=== PATIENT | male | born 1940 | race Caucasian/White ===

== ENCOUNTER 2020-03-27 16:09 | Inpatient (IN) | payer OTHER ==
[~2020-03-27] VITALS: Ht 165.1 cm; Wt 56.2 kg
[2020-03-27] MEDS ORDERED: IV NORMAL SALINE 1000ML BAG 1,000 ML IV ONE ×2 (16:30→17:45)
[2020-03-27] MEDS ORDERED: ACETAMINOPHEN 500 MG TABLET PO ONE (16:30)
[2020-03-27] MEDS ORDERED: ACETAMINOPHEN 650 MG SUPP.RECT. ONE (16:44)
[2020-03-27] MEDS ORDERED: DILTIAZEM HCL 125 MG in IV NORMAL SALINE 100ML 100 ML IV ONE (16:45)
[2020-03-27] MEDS ORDERED: dilTIAZem IV PUSH 25 MG/5 ML VIAL IVP ONE ×2 (16:45→17:30)
[2020-03-27 16:52] LABS: BASO % 0 % (0-3); EOS % 0 % (0-3); HEMOGLOBIN 16.7 g/dL (13.0-17.5); LYMPH # 0.6 x10^3/uL (1.0-4.8); LYMPH % 5 % (24-48); MEAN CORPUSCULAR HEMOGLOBIN 29 pg (25-35); MEAN CORPUSCULAR HGB CONC 33 g/dL (31-37); MEAN CORPUSCULAR VOLUME 88 fL (79-100); MONO # 0.4 x10^3/uL (0.0-1.1); MONO % 3 % (0-9); NEUT # 12.7 x10^3/uL (1.8-7.7); NEUT % 92 % (31-73); PLATELET COUNT 230 x10^3/uL (140-400); RED BLOOD COUNT 5.79 x10^6/uL (4.30-5.70); RED CELL DISTRIBUTION WIDTH 14.1 % (11.5-14.5); WHITE BLOOD COUNT 13.8 x10^3/uL (4.0-11.0)
[2020-03-27 17:01] LABS: CALCIUM 8.5 mg/dL (8.5-10.1); CREATININE 1.9 mg/dL (0.7-1.3); GFR 34.3; POTASSIUM 3.9 mmol/L (3.5-5.1)
[2020-03-27 17:08] LABS: ALBUMIN 2.4 g/dL (3.4-5.0); ALBUMIN/GLOBULIN RATIO 0.6 (1.0-1.7); TOTAL BILIRUBIN 0.8 mg/dL (0.2-1.0); TOTAL PROTEIN 6.7 g/dL (6.4-8.2)
[2020-03-27 17:13] LABS: BILIRUBIN,URINE SMALL (NEG); CLARITY,URINE HAZY; COLOR,URINE YELLOW
[2020-03-27 17:14] LABS: AMORPHOUS SEDIMENT,UR PRESENT /HPF; BACTERIA,URINE 0 /HPF (0-FEW); GRANULAR CASTS,URINE FEW /HPF; HYALINE CASTS, URINE MODERATE /HPF; NITRITE,URINE NEGATIVE (NEG); PH,URINE 5.5 (<5.0-8.0); PROTEIN,URINE >=300 mg/dL (NEG-TRACE)
[2020-03-27 17:19] LABS: % ATYL 1 % (0-0); % BANDS 12 % (0-9); % LYMPHS 3 % (24-48); % MONOS 1 % (0-10); % SEGS 83 % (35-66); PLT ESTIMATE ADEQUATE (ADEQUATE); TOXIC GRANULATION SLIGHT; TOXIC VACUOLATION SLIGHT
[2020-03-27] MEDS ORDERED: ACETAMINOPHEN 650 MG SUPP.RECT. PR ONE (17:30)
[2020-03-27] MEDS: IV NORMAL SALINE 1000ML BAG 1,000 ML IV SCH (17:34)
[2020-03-27] MEDS ORDERED: ONDANSETRON PF 4 MG/2 ML VIAL. IV PRN ×2 (17:45→18:15)
--- NOTE | 2020-03-27 17:50 | RAD ---
EXAM: CHEST ONE VIEW. HISTORY: Cough. COMPARISON: None. FINDINGS: A frontal view of the chest is obtained. There are mild airspace infiltrates in the left midlung and left base. Lesser opacities are suspected in the right perihilar region. The inspiration is small. There is no pneumothorax or pleural effusion. The heart is not enlarged. IMPRESSION: 1. Patchy mild airspace infiltrates. Correlate for atypical pneumonia. Electronically signed by: Malorie Michel MD (03/27/2020 5:47 PM) [facility]
--- NOTE | 2020-03-27 17:54 | PHYS DOC ---
Past Medical History Past Medical History: No Pertinent History Smoking Status: Never Smoker Alcohol Use: None General Adult EDM: Chief Complaint: ALTERED MENTAL STATUS HPI: HPI: Patient is an 79-year-old male from [facility] where the vast majority of their inmates and staff are COVID-19 positive. This man has really no underlying medical conditions with the exception of dementia. Over the last 2 days the the staff state that his mental status has deteriorated and he is developed fever and today it appeared as if he had some shortness of breath. EMS was called to bring him to the emergency department for further evaluation. EMS reports to us on their arrival his heart rate was elevated and he was febrile. [] Review of Systems: Review of Systems: Review of systems is unobtainable secondary to the critical nature of the patient's illness along with dementia Heart Score: Risk Factors: Risk Factors: DM, Current or recent (<one month) smoker, HTN, HLP, family history of CAD, obesity. Risk Scores: Score 0 - 3: 2.5% MACE over next 6 weeks - Discharge Home Score 4 - 6: 20.3% MACE over next 6 weeks - Admit for Clinical Observation Score 7 - 10: 72.7% MACE over next 6 weeks - Early Invasive Strategies Current Medications: Current Medications Medications (Trade) Dose Ordered Sig/Asa Start Time Stop Time Status Last Admin Dose Admin Acetaminophen (Tylenol Supp) 650 mg STK-MED ONCE 03/27/20 16:44 03/27/20 16:45 DC Acetaminophen (Tylenol) 1,000 mg 1X ONCE 03/27/20 16:30 03/27/20 16:55 DC Diltiazem HCl (Cardizem Iv Push) 10 mg 1X ONCE 03/27/20 16:45 03/27/20 16:55 DC 03/27/20 16:49 10 MG Diltiazem HCl 125 mg/Sodium Chloride 125 ml @ 5 mls/hr 1X ONCE 03/27/20 16:45 03/28/20 17:44 03/27/20 16:45 5 MLS/HR Sodium Chloride 1,000 ml @ 1,000 mls/hr 1X ONCE 03/27/20 16:30 03/27/20 17:29 DC 03/27/20 16:48 1,000 MLS/HR Allergies: Allergies: Allergies Coded Allergies Type Severity Reaction Last Updated Verified No Known Drug Allergies 03/27/20 No Physical Exam: PE: Constitutional: Well developed, well nourished, n appears acutely ill [] HENT: Normocephalic, atraumatic, bilateral external ears normal, oropharynx moist, no oral exudates, nose normal. [] Eyes: PERRLA, EOMI, conjunctiva normal, no discharge. [] Neck: Normal range of motion, no tenderness, supple, no stridor. [] Cardiovascular: Tachycardic irregularly irregular no murmur r [] Lungs & Thorax: Bilateral breath sounds clear to auscultation [] Abdomen: Bowel sounds normal, soft, no tenderness, no masses, no pulsatile masses. [] Skin: Warm, dry, no erythema, no rash. [] Back: No tenderness, no CVA tenderness. [] Extremities: No tenderness, no cyanosis, no clubbing, ROM intact, no edema. [] Neurologic: Awake but confused, normal motor function, normal sensory function, no focal deficits noted. [] Psychologic: Unable to assess. [] Current Patient Data: Labs: Laboratory Tests Test 03/27/20 16:37 03/27/20 17:02 White Blood Count 13.8 x10^3/uL (4.0-11.0) H Red Blood Count 5.79 x10^6/uL (4.30-5.70) H Hemoglobin 16.7 g/dL (13.0-17.5) Hematocrit 51.0 % (39.0-53.0) Mean Corpuscular Volume 88 fL (79-100) Mean Corpuscular Hemoglobin 29 pg (25-35) Mean Corpuscular Hemoglobin Concent 33 g/dL (31-37) Red Cell Distribution Width 14.1 % (11.5-14.5) Platelet Count 230 x10^3/uL (140-400) Neutrophils (%) (Auto) 92 % (31-73) H Lymphocytes (%) (Auto) 5 % (24-48) L Monocytes (%) (Auto) 3 % (0-9) Eosinophils (%) (Auto) 0 % (0-3) Basophils (%) (Auto) 0 % (0-3) Neutrophils # (Auto) 12.7 x10^3/uL (1.8-7.7) H Lymphocytes # (Auto) 0.6 x10^3/uL (1.0-4.8) L Monocytes # (Auto) 0.4 x10^3/uL (0.0-1.1) Eosinophils # (Auto) 0.0 x10^3/uL (0.0-0.7) Basophils # (Auto) 0.0 x10^3/uL (0.0-0.2) Segmented Neutrophils % 83 % (35-66) H Band Neutrophils % 12 % (0-9) H Lymphocytes % 3 % (24-48) L Atypical Lymphocytes % (Manual) 1 % (0-0) H Monocytes % 1 % (0-10) Toxic Granulation Slight Toxic Vacuolation Slight Platelet Estimate Adequate (ADEQUATE) Sodium Level 151 mmol/L (136-145) H Potassium Level 3.9 mmol/L (3.5-5.1) Chloride Level 110 mmol/L (98-107) H Carbon Dioxide Level 29 mmol/L (21-32) Anion Gap 12 (6-14) Blood Urea Nitrogen 47 mg/dL (8-26) H Creatinine 1.9 mg/dL (0.7-1.3) H Estimated GFR (Cockcroft-Gault) 34.3 BUN/Creatinine Ratio 25 (6-20) H Glucose Level 120 mg/dL (70-99) H Lactic Acid Level 3.2 mmol/L (0.4-2.0) H Calcium Level 8.5 mg/dL (8.5-10.1) Total Bilirubin 0.8 mg/dL (0.2-1.0) Aspartate Amino Transferase (AST) 60 U/L (15-37) H Alanine Aminotransferase (ALT) 21 U/L (16-63) Alkaline Phosphatase 38 U/L (46-116) L Troponin I Quantitative 1.430 ng/mL (0.000-0.055) Total Protein 6.7 g/dL (6.4-8.2) Albumin 2.4 g/dL (3.4-5.0) L Albumin/Globulin Ratio 0.6 (1.0-1.7) L Urine Collection Type U cath Urine Color Yellow Urine Clarity Hazy Urine pH 5.5 (<5.0-8.0) Urine Specific [place] >=1.030 (1.000-1.030) Urine Protein >=300 mg/dL (NEG-TRACE) Urine Glucose (UA) Negative mg/dL (NEG) Urine Ketones (Stick) 15 mg/dL (NEG) Urine Blood Moderate (NEG) Urine Nitrite Negative (NEG) Urine Bilirubin Small (NEG) Urine Urobilinogen Dipstick 1.0 mg/dL (0.2 mg/dL) Urine Leukocyte Esterase Negative (NEG) Urine RBC 3-5 /HPF (0-2) Urine WBC 1-4 /HPF (0-4) Urine Squamous Epithelial Cells None /LPF Urine Amorphous Sediment Present /HPF Urine Bacteria 0 /HPF (0-FEW) Urine Hyaline Casts Moderate /HPF Urine Granular Casts Few /HPF Urine Mucus Marked /LPF Laboratory Tests 03/27/20 16:37 Laboratory Tests 03/27/20 16:37 Vital Signs: Vital Signs Date Time Temp Pulse Resp B/P (MAP) Pulse Ox O2 Delivery O2 Flow Rate FiO2 03/27/20 17:45 151 105/70 03/27/20 16:37 101.6 26 87 Nasal Cannula 3.0 101.6 EKG: EKG: EKG: Rapid atrial fibrillation rate of 180 with [address] obvious ischemic [address]-T changes [] Radiology/Procedures: Radiology/Procedures: [] Impression: REASON: cough PROCEDURE: CHEST AP ONLY EXAM: CHEST ONE VIEW. HISTORY: Cough. COMPARISON: None. FINDINGS: A frontal view of the chest is obtained. There are mild airspace infiltrates in the left midlung and left base. Lesser opacities are suspected in the right perihilar region. The inspiration is small. There is no pneumothorax or pleural effusion. The heart is not enlarged. IMPRESSION: 1. Patchy mild airspace infiltrates. Correlate for atypical pneumonia. Course & Med Decision Making: Course & Med Decision Making Pertinent Labs and Imaging studies reviewed. (See chart for details) [CRITICAL CARE: Time spent was 35 minutes. This includes medical management, evaluation, reevaluation, discussion with consultants and family. Critical Care does NOT include time spent on separately billed procedures. ED course: Evaluation reveals a very sick 79-year-old male who presents to the emergency department with some respiratory distress and tachycardia. It looks as if he is in rapid atrial fibrillation. He was given IV fluids and a Cardizem bolus and subsequently started on Cardizem drip. This did not really affect his rate much so he was given another bolus and continued on the drip. I suspect this patient has rapid atrial fibrillation and COVID-19. I think his elevated troponin is rate related.] Dragon Disclaimer: Dragrachel Disclaimer: This electronic medical record was generated, in whole or in part, using a voice recognition dictation system. Departure Departure Impression: Primary Impression: Rapid atrial fibrillation Additional Impression: COVID-19 virus infection Disposition: ADMITTED INPATIENT Admitting Physician: SENA Condition: CRITICAL Referrals: NON,STAFF (PCP) MARCO LANDA DO March 27, 2020 17:54
[2020-03-27] MEDS ORDERED: 0.9 % SODIUM CHLORIDE 10 ML DISP.SYRIN. IV PRN ×2 (18:15→18:30)
[2020-03-27] MEDS ORDERED: DOCUSATE SODIUM 100 MG CAPSULE. PO PRN (18:15)
[2020-03-27] MEDS ORDERED: ACETAMINOPHEN 650 MG SUPP.RECT. PR PRN (18:15)
--- NOTE | 2020-03-27 18:25 | PDOC1 ---
History and Physical Date of Admission Date of Admission DATE: 03/27/20 TIME: 18:25 Identification/Chief Complaint Chief Complaint SEEN IN ER with fever, cough x 2 days, altered mentation, inmate at [facility] for 46 yrs, known hx of moderate dementia , , cxr concerning for covid- 19 pneumonia, found to be in AFIB RVR GIVEN CARDIZEM, then became hypotensive, ADMITTED TO ICU BED 107 ON PRESSORS troponin i elevated as well Past Medical History Past Medical History Past Medical History Past Medical History: No Pertinent History Smoking Status: Never Smoker Alcohol Use: None FHX HTN Family History Family History: Other (UNKNOWN) Social History Smoke: No ALCOHOL: none Drugs: None Current Problem List Problem List Problems Medical Problems: (1) COVID-19 virus infection Status: Acute (2) Rapid atrial fibrillation Status: Acute Current Medications Current Medications Current Medications Sodium Chloride 1,000 ml @ 1,000 mls/hr 1X ONCE IV Last administered on 03/27/20at 16:48; Start 03/27/20 at 16:30; Stop 03/27/20 at 17:29; Status DC Acetaminophen (Tylenol) 1,000 mg 1X ONCE PO ; Start 03/27/20 at 16:30; Stop 03/27/20 at 16:55; Status DC Diltiazem HCl 125 mg/Sodium Chloride 125 ml @ 5 mls/hr 1X ONCE IV Last administered on 03/27/20at 16:45; Start 03/27/20 at 16:45; Stop 03/28/20 at 17:44 Diltiazem HCl (Cardizem Iv Push) 10 mg 1X ONCE IVP Last administered on 03/27/20at 16:49; Start 03/27/20 at 16:45; Stop 03/27/20 at 16:55; Status DC Acetaminophen (Tylenol Supp) 650 mg STK-MED ONCE .ROUTE ; Start 03/27/20 at 16:44; Stop 03/27/20 at 16:45; Status DC Diltiazem HCl (Cardizem Iv Push) 10 mg 1X ONCE IVP Last administered on 03/27/20at 17:45; Start 03/27/20 at 17:30; Stop 03/27/20 at 17:37; Status DC Acetaminophen (Tylenol Supp) 650 mg 1X ONCE TN ; Start 03/27/20 at 17:30; Stop 03/27/20 at 17:37; Status DC Sodium Chloride 1,000 ml @ 1,000 mls/hr 1X ONCE IV Last administered on 03/27/20at 17:45; Start 03/27/20 at 17:45; Stop 03/27/20 at 18:44 Ondansetron HCl (Zofran) 4 mg PRN Q8HRS PRN IV NAUSEA/VOMITING; Start 03/27/20 at 17:45; Stop 03/27/20 at 18:20; Status DC Sodium Chloride 1,000 ml @ 125 mls/hr Q8H IV ; Start 03/27/20 at 17:34; Stop 03/28/20 at 17:33 Piperacillin Sod/ Tazobactam Sod 3.375 gm/Sodium Chloride 50 ml @ 100 mls/hr Q6HRS IV ; Start 03/28/20 at 00:00; Stop 03/27/20 at 18:15; Status DC Piperacillin Sod/ Tazobactam Sod 2.25 gm/Sodium Chloride 50 ml @ 100 mls/hr Q6HRS IV ; Start 03/27/20 at 18:30 Sodium Chloride (Normal Saline Flush) 3 ml QSHIFT PRN IV AFTER MEDS AND BLOOD DRAWS; Start 03/27/20 at 18:15; Status Cancel Ondansetron HCl (Zofran) 4 mg PRN Q4HRS PRN IV NAUSEA/VOMITING; Start 03/27/20 at 18:15 Acetaminophen (Tylenol Supp) 650 mg PRN Q4HRS PRN TN TEMP OVER 100.4F OR MILD PAIN; Start 03/27/20 at 18:15 Docusate Sodium (Colace) 100 mg PRN BID PRN PO CONSTIPATION; Start 03/27/20 at 18:15 Enoxaparin Sodium (Lovenox 30mg Syringe) 30 mg BID SQ ; Start 03/27/20 at 21:00 Dopamine HCl/ Dextrose 250 ml @ As Directed STK-MED ONCE IV ; Start 03/27/20 at 18:18; Stop 03/27/20 at 18:19; Status DC Hydrocortisone Sodium Succinate (Solu-CORTEF) 100 mg 1X ONCE IV ; Start 03/27/20 at 18:30; Stop 03/27/20 at 18:31 Sodium Chloride (Normal Saline Flush) 10 ml QSHIFT PRN IV AFTER MEDS AND BLOOD DRAWS; Start 03/27/20 at 18:30 Vancomycin HCl (Vanco Per Pharmacy) 1 each 1X ONCE MC ; Start 03/27/20 at 18:30; Stop 03/27/20 at 18:31; Status UNV Allergies Allergies: Coded Allergies: No Known Drug Allergies (Unverified , 03/27/20) ROS Review of System UNABLE TO PROVIDE DUE TO DEMENTIA General: YES: Fatigue, Malaise Physical Exam Physical Exam HENT: Normocephalic, atraumatic, bilateral external ears normal, oropharynx moist, no oral exudates, nose normal. [] Eyes: PERRLA, EOMI, conjunctiva normal, no discharge. [] Neck: Normal range of motion, no tenderness, supple, no stridor. [] Cardiovascular: Tachycardic irregularly irregular no murmur r [] Lungs & Thorax: Bilateral breath sounds clear to auscultation [] Abdomen: Bowel sounds normal, soft, no tenderness, no masses, no pulsatile masses. [] Skin: Warm, dry, no erythema, no rash. [] Back: No tenderness, no CVA tenderness. [] Extremities: No tenderness, no cyanosis, no clubbing, ROM intact, no edema. [] Neurologic: Awake but confused, normal motor function, normal sensory function, no focal deficits noted. [] Psychologic: Unable to assess. [] HEENT: Atraumatic Abdomen: Soft Rectal Exam: not examined PELVIC: Examination not indicated Extremities: No cyanosis Neuro: Cranial nerves 3-12 NL Vitals Vitals Vital Signs Date Time Temp Pulse Resp B/P (MAP) Pulse Ox O2 Delivery O2 Flow Rate FiO2 03/27/20 17:45 151 105/70 03/27/20 16:37 101.6 26 87 Nasal Cannula 3.0 101.6 Labs Labs Laboratory Tests Test 03/27/20 16:37 03/27/20 17:02 White Blood Count 13.8 x10^3/uL (4.0-11.0) Red Blood Count 5.79 x10^6/uL (4.30-5.70) Hemoglobin 16.7 g/dL (13.0-17.5) Hematocrit 51.0 % (39.0-53.0) Mean Corpuscular Volume 88 fL (79-100) Mean Corpuscular Hemoglobin 29 pg (25-35) Mean Corpuscular Hemoglobin Concent 33 g/dL (31-37) Red Cell Distribution Width 14.1 % (11.5-14.5) Platelet Count 230 x10^3/uL (140-400) Neutrophils (%) (Auto) 92 % (31-73) Lymphocytes (%) (Auto) 5 % (24-48) Monocytes (%) (Auto) 3 % (0-9) Eosinophils (%) (Auto) 0 % (0-3) Basophils (%) (Auto) 0 % (0-3) Neutrophils # (Auto) 12.7 x10^3/uL (1.8-7.7) Lymphocytes # (Auto) 0.6 x10^3/uL (1.0-4.8) Monocytes # (Auto) 0.4 x10^3/uL (0.0-1.1) Eosinophils # (Auto) 0.0 x10^3/uL (0.0-0.7) Basophils # (Auto) 0.0 x10^3/uL (0.0-0.2) Segmented Neutrophils % 83 % (35-66) Band Neutrophils % 12 % (0-9) Lymphocytes % 3 % (24-48) Atypical Lymphocytes % (Manual) 1 % (0-0) Monocytes % 1 % (0-10) Toxic Granulation Slight Toxic Vacuolation Slight Platelet Estimate Adequate (ADEQUATE) Sodium Level 151 mmol/L (136-145) Potassium Level 3.9 mmol/L (3.5-5.1) Chloride Level 110 mmol/L (98-107) Carbon Dioxide Level 29 mmol/L (21-32) Anion Gap 12 (6-14) Blood Urea Nitrogen 47 mg/dL (8-26) Creatinine 1.9 mg/dL (0.7-1.3) Estimated GFR (Cockcroft-Gault) 34.3 BUN/Creatinine Ratio 25 (6-20) Glucose Level 120 mg/dL (70-99) Lactic Acid Level 3.2 mmol/L (0.4-2.0) Calcium Level 8.5 mg/dL (8.5-10.1) Total Bilirubin 0.8 mg/dL (0.2-1.0) Aspartate Amino Transf (AST/SGOT) 60 U/L (15-37) Alanine Aminotransferase (ALT/SGPT) 21 U/L (16-63) Alkaline Phosphatase 38 U/L (46-116) Troponin I Quantitative 1.430 ng/mL (0.000-0.055) Total Protein 6.7 g/dL (6.4-8.2) Albumin 2.4 g/dL (3.4-5.0) Albumin/Globulin Ratio 0.6 (1.0-1.7) Urine Collection Type U cath Urine Color Yellow Urine Clarity Hazy Urine pH 5.5 (<5.0-8.0) Urine Specific [place] >=1.030 (1.000-1.030) Urine Protein >=300 mg/dL (NEG-TRACE) Urine Glucose (UA) Negative mg/dL (NEG) Urine Ketones (Stick) 15 mg/dL (NEG) Urine Blood Moderate (NEG) Urine Nitrite Negative (NEG) Urine Bilirubin Small (NEG) Urine Urobilinogen Dipstick 1.0 mg/dL (0.2 mg/dL) Urine Leukocyte Esterase Negative (NEG) Urine RBC 3-5 /HPF (0-2) Urine WBC 1-4 /HPF (0-4) Urine Squamous Epithelial Cells None /LPF Urine Amorphous Sediment Present /HPF Urine Bacteria 0 /HPF (0-FEW) Urine Hyaline Casts Moderate /HPF Urine Granular Casts Few /HPF Urine Mucus Marked /LPF Laboratory Tests Test 03/27/20 16:37 03/27/20 17:02 White Blood Count 13.8 x10^3/uL (4.0-11.0) Red Blood Count 5.79 x10^6/uL (4.30-5.70) Hemoglobin 16.7 g/dL (13.0-17.5) Hematocrit 51.0 % (39.0-53.0) Mean Corpuscular Volume 88 fL (79-100) Mean Corpuscular Hemoglobin 29 pg (25-35) Mean Corpuscular Hemoglobin Concent 33 g/dL (31-37) Red Cell Distribution Width 14.1 % (11.5-14.5) Platelet Count 230 x10^3/uL (140-400) Neutrophils (%) (Auto) 92 % (31-73) Lymphocytes (%) (Auto) 5 % (24-48) Monocytes (%) (Auto) 3 % (0-9) Eosinophils (%) (Auto) 0 % (0-3) Basophils (%) (Auto) 0 % (0-3) Neutrophils # (Auto) 12.7 x10^3/uL (1.8-7.7) Lymphocytes # (Auto) 0.6 x10^3/uL (1.0-4.8) Monocytes # (Auto) 0.4 x10^3/uL (0.0-1.1) Eosinophils # (Auto) 0.0 x10^3/uL (0.0-0.7) Basophils # (Auto) 0.0 x10^3/uL (0.0-0.2) Segmented Neutrophils % 83 % (35-66) Band Neutrophils % 12 % (0-9) Lymphocytes % 3 % (24-48) Atypical Lymphocytes % (Manual) 1 % (0-0) Monocytes % 1 % (0-10) Toxic Granulation Slight Toxic Vacuolation Slight Platelet Estimate Adequate (ADEQUATE) Sodium Level 151 mmol/L (136-145) Potassium Level 3.9 mmol/L (3.5-5.1) Chloride Level 110 mmol/L (98-107) Carbon Dioxide Level 29 mmol/L (21-32) Anion Gap 12 (6-14) Blood Urea Nitrogen 47 mg/dL (8-26) Creatinine 1.9 mg/dL (0.7-1.3) Estimated GFR (Cockcroft-Gault) 34.3 BUN/Creatinine Ratio 25 (6-20) Glucose Level 120 mg/dL (70-99) Lactic Acid Level 3.2 mmol/L (0.4-2.0) Calcium Level 8.5 mg/dL (8.5-10.1) Total Bilirubin 0.8 mg/dL (0.2-1.0) Aspartate Amino Transf (AST/SGOT) 60 U/L (15-37) Alanine Aminotransferase (ALT/SGPT) 21 U/L (16-63) Alkaline Phosphatase 38 U/L (46-116) Troponin I Quantitative 1.430 ng/mL (0.000-0.055) Total Protein 6.7 g/dL (6.4-8.2) Albumin 2.4 g/dL (3.4-5.0) Albumin/Globulin Ratio 0.6 (1.0-1.7) Urine Collection Type U cath Urine Color Yellow Urine Clarity Hazy Urine pH 5.5 (<5.0-8.0) Urine Specific [place] >=1.030 (1.000-1.030) Urine Protein >=300 mg/dL (NEG-TRACE) Urine Glucose (UA) Negative mg/dL (NEG) Urine Ketones (Stick) 15 mg/dL (NEG) Urine Blood Moderate (NEG) Urine Nitrite Negative (NEG) Urine Bilirubin Small (NEG) Urine Urobilinogen Dipstick 1.0 mg/dL (0.2 mg/dL) Urine Leukocyte Esterase Negative (NEG) Urine RBC 3-5 /HPF (0-2) Urine WBC 1-4 /HPF (0-4) Urine Squamous Epithelial Cells None /LPF Urine Amorphous Sediment Present /HPF Urine Bacteria 0 /HPF (0-FEW) Urine Hyaline Casts Moderate /HPF Urine Granular Casts Few /HPF Urine Mucus Marked /LPF Images Images EXAM: CHEST ONE VIEW. HISTORY: Cough. COMPARISON: None. FINDINGS: A frontal view of the chest is obtained. There are mild airspace infiltrates in the left midlung and left base. Lesser opacities are suspected in the right perihilar region. The inspiration is small. There is no pneumothorax or pleural effusion. The heart is not enlarged. IMPRESSION: 1. Patchy mild airspace infiltrates. Correlate for atypical pneumonia. Electronically signed by: Malorie Michel MD (03/27/2020 5:47 PM) [facility] VTE Prophylaxis Ordered VTE Prophylaxis Devices: Yes VTE Pharmacological Prophylaxi: Yes Assessment/Plan Assessment/Plan IMPRESSION 1. Acute pneumonia, suspect covid-19 viral sepsis 2. acute hypoxic resp failure 3. DEHYDRATION 4. elevated troponin i 5. severe protein-caloric malnutrition 6. CYNTHIA plan admit ICU PRESSOR SUPPORT IV IV FLUID support PULM CONSULT CARDIOLOGY CONSULT dvt prophylaxis sq lovenox bid iv pepsid 20 mg bid EMPERIC IV ANTIBIOTICS BLOOD AND URINE CULTURES POOR over-all prognosis given age will encourage DNI have discussed with the quick technician in [facility], i favor palliative approach PHONE # [phone] DEPUTY WARDHORTENCIA FARRELL DISCUSSED CARE BY PHONE 106 min cc time ABUNDIO VERMA MD March 27, 2020 18:25
[2020-03-27] MEDS: PIPERACILLIN/TAZOBACTAM 2.25 GM in IV NORMAL SALINE 50ML 50 ML IV SCH (18:30)
[2020-03-27] MEDS ORDERED: HYDROCORTISONE SOD SUCC/PF 100 MG/2 ML VIAL. IV ONE (18:30)
[2020-03-27] MEDS ORDERED: VANCOMYCIN PER PHARMACY MC ONE (18:30)
[2020-03-27 20:00] VITALS: BP 89/54
[2020-03-27] MEDS ORDERED: VANCOMYCIN 1.5 GM in IV NORMAL SALINE 500ML BAG 500 ML IV ONE (20:00)
[2020-03-27 20:25] LABS: D-DIMER 3.39 ug/mlFEU (0.00-0.50)
[2020-03-27 20:34] LABS: INFLUENZA A PATIENT NEGATIVE (NEGATIVE); INFLUENZA B PATIENT NEGATIVE (NEGATIVE)
[2020-03-27] MEDS: ENOXAPARIN 30 MG/0.3 ML SYRINGE. SQ SCH (20:44)
[2020-03-27] MEDS: FAMOTIDINE 20 MG/2 ML VIAL IVP SCH (20:44)
[2020-03-27 21:00] VITALS: BP 99/52
[2020-03-27 22:00] VITALS: BP 99/61
[2020-03-27 23:00] VITALS: BP 104/64
[2020-03-28] VITALS (19 sets, daily range): BP systolic 103–149; BP diastolic 52–93
[2020-03-28] MEDS ORDERED: PIPERACILLIN/TAZOBACTAM 3.375 GM in IV NORMAL SALINE 50ML 50 ML IV SCH ×2
[2020-03-28] MEDS: PIPERACILLIN/TAZOBACTAM 2.25 GM in IV NORMAL SALINE 50ML 50 ML IV SCH ×5 (00:59→23:35)
[2020-03-28] MEDS: IV NORMAL SALINE 1000ML BAG 1,000 ML IV SCH (02:43)
[2020-03-28] MEDS: IV 1/2 NORMAL SALINE 1,000 ML IV SCH ×2 (05:24→17:50)
[2020-03-28 05:41] LABS: BASO % 0 % (0-3); EOS % 0 % (0-3); HEMATOCRIT 46.1 % (39.0-53.0); HEMOGLOBIN 14.8 g/dL (13.0-17.5); LYMPH # 0.6 x10^3/uL (1.0-4.8); LYMPH % 3 % (24-48); MEAN CORPUSCULAR HEMOGLOBIN 29 pg (25-35); MEAN CORPUSCULAR HGB CONC 32 g/dL (31-37); MEAN CORPUSCULAR VOLUME 90 fL (79-100); MONO # 0.3 x10^3/uL (0.0-1.1); MONO % 2 % (0-9); NEUT # 16.7 x10^3/uL (1.8-7.7); NEUT % 95 % (31-73); PLATELET COUNT 195 x10^3/uL (140-400); RED BLOOD COUNT 5.15 x10^6/uL (4.30-5.70); RED CELL DISTRIBUTION WIDTH 14.5 % (11.5-14.5); WHITE BLOOD COUNT 17.6 x10^3/uL (4.0-11.0)
[2020-03-28 06:07] LABS: ALBUMIN 1.8 g/dL (3.4-5.0); ALBUMIN/GLOBULIN RATIO 0.5 (1.0-1.7); CALCIUM 7.4 mg/dL (8.5-10.1); CREATININE 1.3 mg/dL (0.7-1.3); GFR 53.1; POTASSIUM 3.5 mmol/L (3.5-5.1); TOTAL BILIRUBIN 0.8 mg/dL (0.2-1.0); TOTAL PROTEIN 5.3 g/dL (6.4-8.2)
--- NOTE | 2020-03-28 07:00 | EKG ---
[facility] [address] [place] [address] Test Date: 2020-03-27 Test Time: 16:28:26 Pat Name: EMILIE MARIE Department: Room: [facility] Gender: M Auger Supervisor: : 1940 Requested By: MARCO LANDA Order Number: [id number] Reading MD: Vinay Monge Measurements Intervals [place] Rate: 188 P: RI: QRS: 69 QRSD: 60 T: 92 QT: 286 QTc: 511 Interpretive Statements ATRIAL FIBRILLATION WITH RVR T ABNORMALITY IN HIGH LATERAL LEADS ABNORMAL ECG RI6.02 No previous ECG available for comparison Electronically Signed On 03-28-2020 7:54:52 CDT by Vinay Monge
[2020-03-28] MEDS: ENOXAPARIN 30 MG/0.3 ML SYRINGE. SQ SCH ×2 (08:33→20:30)
--- NOTE | 2020-03-28 09:39 | PDOC2 ---
CONSULT Date of Consult Date of Consult DATE: 03/28/20 TIME: 09:32 Reason for Consult Reason for Consult: CYNTHIA Source Source: Chart review History of Present Illness Reason for Visit: Pt is a 79-year-old CM who is an inmate at [facility] for past 46 years. He was brought in with fever, cough, shortness of breath, suspected COVID-19. He was also was found to be in atrial fibrillation with RVR, given Cardizem, became hypotensive and admitted to the ICU on pressors. He states he is feeling better. Denies any nausea, vomiting, or diarrhea. Denies any chest pain, shortness of breath, abdominal pain, urinary symptoms or bowel symptoms. Past Medical History Past Medical History Positive for dementia, other medical history is unknown. Family History Family History Non contributory Family History: Other (UNKNOWN) Social History No ALCOHOL: none Drugs: None Current Problem List Problem List Problems Medical Problems: (1) COVID-19 virus infection Status: Acute (2) Rapid atrial fibrillation Status: Acute Current Medications Current Medications Current Medications Sodium Chloride 1,000 ml @ 1,000 mls/hr 1X ONCE IV Last administered on 03/27at 16:48; Start 03/27/20 at 16:30; Stop 03/27/20 at 17:29; Status DC Acetaminophen (Tylenol) 1,000 mg 1X ONCE PO ; Start 03/27/20 at 16:30; Stop 03/27/20 at 16:55; Status DC Diltiazem HCl 125 mg/Sodium Chloride 125 ml @ 5 mls/hr 1X ONCE IV Last adm inistered on 03/27/20at 16:45; Start 03/27/20 at 16:45; Stop 03/28/20 at 17:44 Diltiazem HCl (Cardizem Iv Push) 10 mg 1X ONCE IVP Last administered on 03/27/20at 16:49; Start 03/27/20 at 16:45; Stop 03/27/20 at 16:55; Status DC Acetaminophen (Tylenol Supp) 650 mg STK-MED ONCE .ROUTE ; Start 03/27/20 at 16:44; Stop 03/27/20 at 16:45; Status DC Diltiazem HCl (Cardizem Iv Push) 10 mg 1X ONCE IVP Last administered on 03/27/20at 17:45; Start 03/27/20 at 17:30; Stop 03/27/20 at 17:37; Status DC Acetaminophen (Tylenol Supp) 650 mg 1X ONCE ID Last administered on 03/27/20at 17:30; Start 03/27/20 at 17:30; Stop 03/27/20 at 17:37; Status DC Sodium Chloride 1,000 ml @ 1,000 mls/hr 1X ONCE IV Last administered on 03/27/20at 17:45; Start 03/27/20 at 17:45; Stop 03/27/20 at 18:44; Status DC Ondansetron HCl (Zofran) 4 mg PRN Q8HRS PRN IV NAUSEA/VOMITING; Start 03/27/20 at 17:45; Stop 03/27/20 at 18:20; Status DC Sodium Chloride 1,000 ml @ 125 mls/hr Q8H IV Last administered on 03/28/20at 02:43; Start 03/27/20 at 17:34; Stop 03/28/20 at 05:06; Status DC Piperacillin Sod/ Tazobactam Sod 3.375 gm/Sodium Chloride 50 ml @ 100 mls/hr Q6HRS IV ; Start 03/28/20 at 00:00; Stop 03/27/20 at 18:15; Status DC Piperacillin Sod/ Tazobactam Sod 2.25 gm/Sodium Chloride 50 ml @ 100 mls/hr Q6HRS IV Last administered on 03/28/20at 05:24; Start 03/27/20 at 18:30 Sodium Chloride (Normal Saline Flush) 3 ml QSHIFT PRN IV AFTER MEDS AND BLOOD DRAWS; Start 03/27/20 at 18:15; Status Cancel Ondansetron HCl (Zofran) 4 mg PRN Q4HRS PRN IV NAUSEA/VOMITING; Start 03/27/20 at 18:15 Acetaminophen (Tylenol Supp) 650 mg PRN Q4HRS PRN ID TEMP OVER 100.4F OR MILD PAIN; Start 03/27/20 at 18:15 Docusate Sodium (Colace) 100 mg PRN BID PRN PO CONSTIPATION; Start 03/27/20 at 18:15 Enoxaparin Sodium (Lovenox 30mg Syringe) 30 mg BID SQ Last administered on 03/28/20at 08:33; Start 03/27/20 at 21:00 Dopamine HCl/ Dextrose 0 ml @ As Directed STK-MED ONCE IV ; Start 03/27/20 at 18:18; Stop 03/27/20 at 18:19; Status DC Hydrocortisone Sodium Succinate (Solu-CORTEF) 100 mg 1X ONCE IV Last administered on 03/27/20at 18:30; Start 03/27/20 at 18:30; Stop 03/27/20 at 18:31; Status DC Sodium Chloride (Normal Saline Flush) 10 ml QSHIFT PRN IV AFTER MEDS AND BLOOD DRAWS; Start 03/27/20 at 18:30 Vancomycin HCl (Vanco Per Pharmacy) 1 each 1X ONCE MC Last administered on 03/27/20at 18:30; Start 03/27/20 at 18:30; Stop 03/27/20 at 18:31; Status DC Vancomycin HCl 1.5 gm/Sodium Chloride 500 ml @ 250 mls/hr 1X ONCE IV Last administered on 03/27/20at 20:25; Start 03/27/20 at 20:00; Stop 03/27/20 at 21:59; Status DC Famotidine (Pepcid Vial) 20 mg QHS IVP Last administered on 03/27/20at 20:44; Start 03/27/20 at 21:00 Sodium Chloride 1,000 ml @ 75 mls/hr [id number] IV Last administered on 03/28/20at 05:24; Start 03/28/20 at 05:15 Allergies Allergies: Coded Allergies: No Known Drug Allergies (Unverified , 03/27/20) ROS Review of System Per HPI Physical Exam Physical Exam GEN: NAD HEEN: OM moist , On O2 by NC NECK: supple CVS: S1S2 RESP: decreased at bases , Non labored GI: BS + ve, NO Bruit, Non Tender, Non Distended : No CVA tenderness, No Suprapubic Tenderness, Booker + SKIN No Rash NEURO- Grossly normal Ext- No edema Vital Signs Vital Signs Date Time Temp Pulse Resp B/P (MAP) Pulse Ox O2 Delivery O2 Flow Rate FiO2 03/28/20 08:05 Nasal Cannula 3.0 03/28/20 08:00 97.6 56 103/56 (72) 100 97.6 03/28/20 05:59 18 Assessment & Plan CYNTHIA- vasomotor/Hypotensive Improving, UA- unremarkable , K and Bicarb normal , baseline unknown Supportive care, strict I/O, avoid nephrotoxins HyperNatremia - switch to Hypotonic solution or if not NPO encourage fluid intake Acute pneumonia, suspected covid-19 Fever/ Leukocytosis. Ac Resp failure with Hypoxia- On O2 by NC Hypotension - requiring pressors Atrial fibrillation with rapid ventricular response. Mild dementia. Labs Labs Laboratory Tests Test 03/27/20 16:37 03/27/20 17:02 03/27/20 19:50 03/27/20 23:35 White Blood Count 13.8 x10^3/uL (4.0-11.0) Red Blood Count 5.79 x10^6/uL (4.30-5.70) Hemoglobin 16.7 g/dL (13.0-17.5) Hematocrit 51.0 % (39.0-53.0) Mean Corpuscular Volume 88 fL (79-100) Mean Corpuscular Hemoglobin 29 pg (25-35) Mean Corpuscular Hemoglobin Concent 33 g/dL (31-37) Red Cell Distribution Width 14.1 % (11.5-14.5) Platelet Count 230 x10^3/uL (140-400) Neutrophils (%) (Auto) 92 % (31-73) Lymphocytes (%) (Auto) 5 % (24-48) Monocytes (%) (Auto) 3 % (0-9) Eosinophils (%) (Auto) 0 % (0-3) Basophils (%) (Auto) 0 % (0-3) Neutrophils # (Auto) 12.7 x10^3/uL (1.8-7.7) Lymphocytes # (Auto) 0.6 x10^3/uL (1.0-4.8) Monocytes # (Auto) 0.4 x10^3/uL (0.0-1.1) Eosinophils # (Auto) 0.0 x10^3/uL (0.0-0.7) Basophils # (Auto) 0.0 x10^3/uL (0.0-0.2) Segmented Neutrophils % 83 % (35-66) Band Neutrophils % 12 % (0-9) Lymphocytes % 3 % (24-48) Atypical Lymphocytes % (Manual) 1 % (0-0) Monocytes % 1 % (0-10) Toxic Granulation Slight Toxic Vacuolation Slight Platelet Estimate Adequate (ADEQUATE) Sodium Level 151 mmol/L (136-145) Potassium Level 3.9 mmol/L (3.5-5.1) Chloride Level 110 mmol/L (98-107) Carbon Dioxide Level 29 mmol/L (21-32) Anion Gap 12 (6-14) Blood Urea Nitrogen 47 mg/dL (8-26) Creatinine 1.9 mg/dL (0.7-1.3) Estimated GFR (Cockcroft-Gault) 34.3 BUN/Creatinine Ratio 25 (6-20) Glucose Level 120 mg/dL (70-99) Lactic Acid Level 3.2 mmol/L (0.4-2.0) 1.9 mmol/L (0.4-2.0) Calcium Level 8.5 mg/dL (8.5-10.1) Total Bilirubin 0.8 mg/dL (0.2-1.0) Aspartate Amino Transf (AST/SGOT) 60 U/L (15-37) Alanine Aminotransferase (ALT/SGPT) 21 U/L (16-63) Alkaline Phosphatase 38 U/L (46-116) Troponin I Quantitative 1.430 ng/mL (0.000-0.055) 1.236 ng/mL (0.000-0.055) 1.061 ng/mL (0.000-0.055) Total Protein 6.7 g/dL (6.4-8.2) Albumin 2.4 g/dL (3.4-5.0) Albumin/Globulin Ratio 0.6 (1.0-1.7) Urine Collection Type U cath Urine Color Yellow Urine Clarity Hazy Urine pH 5.5 (<5.0-8.0) Urine Specific [place] >=1.030 (1.000-1.030) Urine Protein >=300 mg/dL (NEG-TRACE) Urine Glucose (UA) Negative mg/dL (NEG) Urine Ketones (Stick) 15 mg/dL (NEG) Urine Blood Moderate (NEG) Urine Nitrite Negative (NEG) Urine Bilirubin Small (NEG) Urine Urobilinogen Dipstick 1.0 mg/dL (0.2 mg/dL) Urine Leukocyte Esterase Negative (NEG) Urine RBC 3-5 /HPF (0-2) Urine WBC 1-4 /HPF (0-4) Urine Squamous Epithelial Cells None /LPF Urine Amorphous Sediment Present /HPF Urine Bacteria 0 /HPF (0-FEW) Urine Hyaline Casts Moderate /HPF Urine Granular Casts Few /HPF Urine Mucus Marked /LPF Fibrinogen 816 mg/dL (200-440) D-Dimer (Fabiola) 3.39 ug/mlFEU (0.00-0.50) Ammonia 10 mcmol/L (11-34) Procalcitonin 0.63 ng/mL (0.00-0.10) Influenza Type A Antigen Negative (NEGATIVE) Influenza Type B Antigen Negative (NEGATIVE) Test 03/28/20 04:50 White Blood Count 17.6 x10^3/uL (4.0-11.0) Red Blood Count 5.15 x10^6/uL (4.30-5.70) Hemoglobin 14.8 g/dL (13.0-17.5) Hematocrit 46.1 % (39.0-53.0) Mean Corpuscular Volume 90 fL (79-100) Mean Corpuscular Hemoglobin 29 pg (25-35) Mean Corpuscular Hemoglobin Concent 32 g/dL (31-37) Red Cell Distribution Width 14.5 % (11.5-14.5) Platelet Count 195 x10^3/uL (140-400) Neutrophils (%) (Auto) 95 % (31-73) Lymphocytes (%) (Auto) 3 % (24-48) Monocytes (%) (Auto) 2 % (0-9) Eosinophils (%) (Auto) 0 % (0-3) Basophils (%) (Auto) 0 % (0-3) Neutrophils # (Auto) 16.7 x10^3/uL (1.8-7.7) Lymphocytes # (Auto) 0.6 x10^3/uL (1.0-4.8) Monocytes # (Auto) 0.3 x10^3/uL (0.0-1.1) Eosinophils # (Auto) 0.0 x10^3/uL (0.0-0.7) Basophils # (Auto) 0.0 x10^3/uL (0.0-0.2) Sodium Level 152 mmol/L (136-145) Potassium Level 3.5 mmol/L (3.5-5.1) Chloride Level 117 mmol/L (98-107) Carbon Dioxide Level 24 mmol/L (21-32) Anion Gap 11 (6-14) Blood Urea Nitrogen 39 mg/dL (8-26) Creatinine 1.3 mg/dL (0.7-1.3) Estimated GFR (Cockcroft-Gault) 53.1 BUN/Creatinine Ratio 30 (6-20) Glucose Level 187 mg/dL (70-99) Calcium Level 7.4 mg/dL (8.5-10.1) Total Bilirubin 0.8 mg/dL (0.2-1.0) Aspartate Amino Transf (AST/SGOT) 43 U/L (15-37) Alanine Aminotransferase (ALT/SGPT) 19 U/L (16-63) Alkaline Phosphatase 37 U/L (46-116) Total Protein 5.3 g/dL (6.4-8.2) Albumin 1.8 g/dL (3.4-5.0) Albumin/Globulin Ratio 0.5 (1.0-1.7) Laboratory Tests Test 03/27/20 16:37 03/27/20 17:02 03/27/20 19:50 03/27/20 23:35 White Blood Count 13.8 x10^3/uL (4.0-11.0) Red Blood Count 5.79 x10^6/uL (4.30-5.70) Hemoglobin 16.7 g/dL (13.0-17.5) Hematocrit 51.0 % (39.0-53.0) Mean Corpuscular Volume 88 fL (79-100) Mean Corpuscular Hemoglobin 29 pg (25-35) Mean Corpuscular Hemoglobin Concent 33 g/dL (31-37) Red Cell Distribution Width 14.1 % (11.5-14.5) Platelet Count 230 x10^3/uL (140-400) Neutrophils (%) (Auto) 92 % (31-73) Lymphocytes (%) (Auto) 5 % (24-48) Monocytes (%) (Auto) 3 % (0-9) Eosinophils (%) (Auto) 0 % (0-3) Basophils (%) (Auto) 0 % (0-3) Neutrophils # (Auto) 12.7 x10^3/uL (1.8-7.7) Lymphocytes # (Auto) 0.6 x10^3/uL (1.0-4.8) Monocytes # (Auto) 0.4 x10^3/uL (0.0-1.1) Eosinophils # (Auto) 0.0 x10^3/uL (0.0-0.7) Basophils # (Auto) 0.0 x10^3/uL (0.0-0.2) Segmented Neutrophils % 83 % (35-66) Band Neutrophils % 12 % (0-9) Lymphocytes % 3 % (24-48) Atypical Lymphocytes % (Manual) 1 % (0-0) Monocytes % 1 % (0-10) Toxic Granulation Slight Toxic Vacuolation Slight Platelet Estimate Adequate (ADEQUATE) Sodium Level 151 mmol/L (136-145) Potassium Level 3.9 mmol/L (3.5-5.1) Chloride Level 110 mmol/L (98-107) Carbon Dioxide Level 29 mmol/L (21-32) Anion Gap 12 (6-14) Blood Urea Nitrogen 47 mg/dL (8-26) Creatinine 1.9 mg/dL (0.7-1.3) Estimated GFR (Cockcroft-Gault) 34.3 BUN/Creatinine Ratio 25 (6-20) Glucose Level 120 mg/dL (70-99) Lactic Acid Level 3.2 mmol/L (0.4-2.0) 1.9 mmol/L (0.4-2.0) Calcium Level 8.5 mg/dL (8.5-10.1) Total Bilirubin 0.8 mg/dL (0.2-1.0) Aspartate Amino Transf (AST/SGOT) 60 U/L (15-37) Alanine Aminotransferase (ALT/SGPT) 21 U/L (16-63) Alkaline Phosphatase 38 U/L (46-116) Troponin I Quantitative 1.430 ng/mL (0.000-0.055) 1.236 ng/mL (0.000-0.055) 1.061 ng/mL (0.000-0.055) Total Protein 6.7 g/dL (6.4-8.2) Albumin 2.4 g/dL (3.4-5.0) Albumin/Globulin Ratio 0.6 (1.0-1.7) Urine Collection Type U cath Urine Color Yellow Urine Clarity Hazy Urine pH 5.5 (<5.0-8.0) Urine Specific [place] >=1.030 (1.000-1.030) Urine Protein >=300 mg/dL (NEG-TRACE) Urine Glucose (UA) Negative mg/dL (NEG) Urine Ketones (Stick) 15 mg/dL (NEG) Urine Blood Moderate (NEG) Urine Nitrite Negative (NEG) Urine Bilirubin Small (NEG) Urine Urobilinogen Dipstick 1.0 mg/dL (0.2 mg/dL) Urine Leukocyte Esterase Negative (NEG) Urine RBC 3-5 /HPF (0-2) Urine WBC 1-4 /HPF (0-4) Urine Squamous Epithelial Cells None /LPF Urine Amorphous Sediment Present /HPF Urine Bacteria 0 /HPF (0-FEW) Urine Hyaline Casts Moderate /HPF Urine Granular Casts Few /HPF Urine Mucus Marked /LPF Fibrinogen 816 mg/dL (200-440) D-Dimer (Fabiola) 3.39 ug/mlFEU (0.00-0.50) Ammonia 10 mcmol/L (11-34) Procalcitonin 0.63 ng/mL (0.00-0.10) Influenza Type A Antigen Negative (NEGATIVE) Influenza Type B Antigen Negative (NEGATIVE) Test 03/28/20 04:50 White Blood Count 17.6 x10^3/uL (4.0-11.0) Red Blood Count 5.15 x10^6/uL (4.30-5.70) Hemoglobin 14.8 g/dL (13.0-17.5) Hematocrit 46.1 % (39.0-53.0) Mean Corpuscular Volume 90 fL (79-100) Mean Corpuscular Hemoglobin 29 pg (25-35) Mean Corpuscular Hemoglobin Concent 32 g/dL (31-37) Red Cell Distribution Width 14.5 % (11.5-14.5) Platelet Count 195 x10^3/uL (140-400) Neutrophils (%) (Auto) 95 % (31-73) Lymphocytes (%) (Auto) 3 % (24-48) Monocytes (%) (Auto) 2 % (0-9) Eosinophils (%) (Auto) 0 % (0-3) Basophils (%) (Auto) 0 % (0-3) Neutrophils # (Auto) 16.7 x10^3/uL (1.8-7.7) Lymphocytes # (Auto) 0.6 x10^3/uL (1.0-4.8) Monocytes # (Auto) 0.3 x10^3/uL (0.0-1.1) Eosinophils # (Auto) 0.0 x10^3/uL (0.0-0.7) Basophils # (Auto) 0.0 x10^3/uL (0.0-0.2) Sodium Level 152 mmol/L (136-145) Potassium Level 3.5 mmol/L (3.5-5.1) Chloride Level 117 mmol/L (98-107) Carbon Dioxide Level 24 mmol/L (21-32) Anion Gap 11 (6-14) Blood Urea Nitrogen 39 mg/dL (8-26) Creatinine 1.3 mg/dL (0.7-1.3) Estimated GFR (Cockcroft-Gault) 53.1 BUN/Creatinine Ratio 30 (6-20) Glucose Level 187 mg/dL (70-99) Calcium Level 7.4 mg/dL (8.5-10.1) Total Bilirubin 0.8 mg/dL (0.2-1.0) Aspartate Amino Transf (AST/SGOT) 43 U/L (15-37) Alanine Aminotransferase (ALT/SGPT) 19 U/L (16-63) Alkaline Phosphatase 37 U/L (46-116) Total Protein 5.3 g/dL (6.4-8.2) Albumin 1.8 g/dL (3.4-5.0) Albumin/Globulin Ratio 0.5 (1.0-1.7) Review All relevant outside records, renal labs, imaging studies, telemetry/EKG's were reviewed. Images Images Cxr-- There are mild airspace infiltrates in the left midlung and left base. Lesser opacities are suspected in the right perihilar region. The inspiration is small. There is no pneumothorax or pleural effusion. The heart is not enlarged. IMPRESSION: 1. Patchy mild airspace infiltrates. Correlate for atypical pneumonia. MERISSA DIAZ MD March 28, 2020 09:39
--- NOTE | 2020-03-28 09:57 | PDOC ---
[employer] PROGRESS NOTE Chief Complaint Chief Complaint COVID-19 syndrome with fulminant respiratory failure Pneumonia Dehydration Elevated troponin Severe protein calorie malnutrition Acute kidney injury Debility History of Present Illness History of Present Illness 03/28/2020 Patient seen and examined in the COVID-19 ICU Discussed with RN He has 2 corrections officers present Chart reviewed He is critically Vitals/I&O Vitals/I&O: Vital Signs Date Time Temp Pulse Resp B/P (MAP) Pulse Ox O2 Delivery O2 Flow Rate FiO2 03/28/20 09:00 78 124/77 (93) 95 Nasal Cannula 3.0 03/28/20 08:00 97.6 97.6 03/28/20 05:59 18 l I & O 03/27/20 03/27/20 03/28/20 15:00 23:00 07:00 Intake Total 2050 ml 915 ml Output Total 230 ml 310 ml Balance 1820 ml 605 ml Physical Exam General: mild distress Heart: No murmurs Lungs: Crackles Abdomen: Soft Extremities: No cyanosis Labs Labs: Laboratory Tests Test 03/27/20 16:37 03/27/20 17:02 03/27/20 19:50 03/27/20 23:35 White Blood Count 13.8 x10^3/uL (4.0-11.0) Red Blood Count 5.79 x10^6/uL (4.30-5.70) Hemoglobin 16.7 g/dL (13.0-17.5) Hematocrit 51.0 % (39.0-53.0) Mean Corpuscular Volume 88 fL (79-100) Mean Corpuscular Hemoglobin 29 pg (25-35) Mean Corpuscular Hemoglobin Concent 33 g/dL (31-37) Red Cell Distribution Width 14.1 % (11.5-14.5) Platelet Count 230 x10^3/uL (140-400) Neutrophils (%) (Auto) 92 % (31-73) Lymphocytes (%) (Auto) 5 % (24-48) Monocytes (%) (Auto) 3 % (0-9) Eosinophils (%) (Auto) 0 % (0-3) Basophils (%) (Auto) 0 % (0-3) Neutrophils # (Auto) 12.7 x10^3/uL (1.8-7.7) Lymphocytes # (Auto) 0.6 x10^3/uL (1.0-4.8) Monocytes # (Auto) 0.4 x10^3/uL (0.0-1.1) Eosinophils # (Auto) 0.0 x10^3/uL (0.0-0.7) Basophils # (Auto) 0.0 x10^3/uL (0.0-0.2) Segmented Neutrophils % 83 % (35-66) Band Neutrophils % 12 % (0-9) Lymphocytes % 3 % (24-48) Atypical Lymphocytes % (Manual) 1 % (0-0) Monocytes % 1 % (0-10) Toxic Granulation Slight Toxic Vacuolation Slight Platelet Estimate Adequate (ADEQUATE) Sodium Level 151 mmol/L (136-145) Potassium Level 3.9 mmol/L (3.5-5.1) Chloride Level 110 mmol/L (98-107) Carbon Dioxide Level 29 mmol/L (21-32) Anion Gap 12 (6-14) Blood Urea Nitrogen 47 mg/dL (8-26) Creatinine 1.9 mg/dL (0.7-1.3) Estimated GFR (Cockcroft-Gault) 34.3 BUN/Creatinine Ratio 25 (6-20) Glucose Level 120 mg/dL (70-99) Lactic Acid Level 3.2 mmol/L (0.4-2.0) 1.9 mmol/L (0.4-2.0) Calcium Level 8.5 mg/dL (8.5-10.1) Total Bilirubin 0.8 mg/dL (0.2-1.0) Aspartate Amino Transf (AST/SGOT) 60 U/L (15-37) Alanine Aminotransferase (ALT/SGPT) 21 U/L (16-63) Alkaline Phosphatase 38 U/L (46-116) Troponin I Quantitative 1.430 ng/mL (0.000-0.055) 1.236 ng/mL (0.000-0.055) 1.061 ng/mL (0.000-0.055) Total Protein 6.7 g/dL (6.4-8.2) Albumin 2.4 g/dL (3.4-5.0) Albumin/Globulin Ratio 0.6 (1.0-1.7) Urine Collection Type U cath Urine Color Yellow Urine Clarity Hazy Urine pH 5.5 (<5.0-8.0) Urine Specific [place] >=1.030 (1.000-1.030) Urine Protein >=300 mg/dL (NEG-TRACE) Urine Glucose (UA) Negative mg/dL (NEG) Urine Ketones (Stick) 15 mg/dL (NEG) Urine Blood Moderate (NEG) Urine Nitrite Negative (NEG) Urine Bilirubin Small (NEG) Urine Urobilinogen Dipstick 1.0 mg/dL (0.2 mg/dL) Urine Leukocyte Esterase Negative (NEG) Urine RBC 3-5 /HPF (0-2) Urine WBC 1-4 /HPF (0-4) Urine Squamous Epithelial Cells None /LPF Urine Amorphous Sediment Present /HPF Urine Bacteria 0 /HPF (0-FEW) Urine Hyaline Casts Moderate /HPF Urine Granular Casts Few /HPF Urine Mucus Marked /LPF Fibrinogen 816 mg/dL (200-440) D-Dimer (Fabiola) 3.39 ug/mlFEU (0.00-0.50) Ammonia 10 mcmol/L (11-34) Procalcitonin 0.63 ng/mL (0.00-0.10) Influenza Type A Antigen Negative (NEGATIVE) Influenza Type B Antigen Negative (NEGATIVE) Test 03/28/20 04:50 White Blood Count 17.6 x10^3/uL (4.0-11.0) Red Blood Count 5.15 x10^6/uL (4.30-5.70) Hemoglobin 14.8 g/dL (13.0-17.5) Hematocrit 46.1 % (39.0-53.0) Mean Corpuscular Volume 90 fL (79-100) Mean Corpuscular Hemoglobin 29 pg (25-35) Mean Corpuscular Hemoglobin Concent 32 g/dL (31-37) Red Cell Distribution Width 14.5 % (11.5-14.5) Platelet Count 195 x10^3/uL (140-400) Neutrophils (%) (Auto) 95 % (31-73) Lymphocytes (%) (Auto) 3 % (24-48) Monocytes (%) (Auto) 2 % (0-9) Eosinophils (%) (Auto) 0 % (0-3) Basophils (%) (Auto) 0 % (0-3) Neutrophils # (Auto) 16.7 x10^3/uL (1.8-7.7) Lymphocytes # (Auto) 0.6 x10^3/uL (1.0-4.8) Monocytes # (Auto) 0.3 x10^3/uL (0.0-1.1) Eosinophils # (Auto) 0.0 x10^3/uL (0.0-0.7) Basophils # (Auto) 0.0 x10^3/uL (0.0-0.2) Sodium Level 152 mmol/L (136-145) Potassium Level 3.5 mmol/L (3.5-5.1) Chloride Level 117 mmol/L (98-107) Carbon Dioxide Level 24 mmol/L (21-32) Anion Gap 11 (6-14) Blood Urea Nitrogen 39 mg/dL (8-26) Creatinine 1.3 mg/dL (0.7-1.3) Estimated GFR (Cockcroft-Gault) 53.1 BUN/Creatinine Ratio 30 (6-20) Glucose Level 187 mg/dL (70-99) Calcium Level 7.4 mg/dL (8.5-10.1) Total Bilirubin 0.8 mg/dL (0.2-1.0) Aspartate Amino Transf (AST/SGOT) 43 U/L (15-37) Alanine Aminotransferase (ALT/SGPT) 19 U/L (16-63) Alkaline Phosphatase 37 U/L (46-116) Total Protein 5.3 g/dL (6.4-8.2) Albumin 1.8 g/dL (3.4-5.0) Albumin/Globulin Ratio 0.5 (1.0-1.7) Assessment and Plan Assessmemt and Plan Problems Medical Problems: (1) COVID-19 virus infection Status: Acute (2) Rapid atrial fibrillation Status: Acute 1. Acute pneumonia, suspect covid-19 viral sepsis 2. acute hypoxic resp failure 3. DEHYDRATION 4. elevated troponin i 5. severe protein-caloric malnutrition 6. CYNTHIA Plan ICU monitoring IV antibiotics IV fluids Trend labs Home meds DVT prophylaxis IV Pepcid Follow cultures Booker to bedside drainage Appreciate specialist input He is critically ill Total time 31-minute Comment Review of Relevant I have reviewed the following items chris (where applicable) has been applied. Medications: Current Medications Medications (Trade) Dose Ordered Sig/Asa Route PRN Reason Start Time Stop Time Status Last Admin Dose Admin Sodium Chloride 1,000 ml @ 1,000 mls/hr 1X ONCE IV 03/27/20 16:30 03/27/20 17:29 DC 03/27/20 16:48 Diltiazem HCl 125 mg/Sodium Chloride 125 ml @ 5 mls/hr 1X ONCE IV 03/27/20 16:45 03/28/20 17:44 03/27/20 16:45 Diltiazem HCl (Cardizem Iv Push) 10 mg 1X ONCE IVP 03/27/20 16:45 03/27/20 16:55 DC 03/27/20 16:49 Diltiazem HCl (Cardizem Iv Push) 10 mg 1X ONCE IVP 03/27/20 17:30 03/27/20 17:37 DC 03/27/20 17:45 Acetaminophen (Tylenol Supp) 650 mg 1X ONCE NV 03/27/20 17:30 03/27/20 17:37 DC 03/27/20 17:30 Sodium Chloride 1,000 ml @ 1,000 mls/hr 1X ONCE IV 03/27/20 17:45 03/27/20 18:44 DC 03/27/20 17:45 Sodium Chloride 1,000 ml @ 125 mls/hr Q8H IV 03/27/20 17:34 03/28/20 05:06 DC 03/28/20 02:43 Piperacillin Sod/ Tazobactam Sod 2.25 gm/Sodium Chloride 50 ml @ 100 mls/hr Q6HRS IV 03/27/20 18:30 03/28/20 05:24 Enoxaparin Sodium (Lovenox 30mg Syringe) 30 mg BID SQ 03/27/20 21:00 03/28/20 08:33 Hydrocortisone Sodium Succinate (Solu-CORTEF) 100 mg 1X ONCE IV 03/27/20 18:30 03/27/20 18:31 DC 03/27/20 18:30 Vancomycin HCl (Vanco Per Pharmacy) 1 each 1X ONCE MC 03/27/20 18:30 03/27/20 18:31 DC 03/27/20 18:30 Vancomycin HCl 1.5 gm/Sodium Chloride 500 ml @ 250 mls/hr 1X ONCE IV 03/27/20 20:00 03/27/20 21:59 DC 03/27/20 20:25 Famotidine (Pepcid Vial) 20 mg QHS IVP 03/27/20 21:00 03/27/20 20:44 Sodium Chloride 1,000 ml @ 75 mls/hr [id number] IV 03/28/20 05:15 03/28/20 05:24 KERWIN MANDUJANO III DO March 28, 2020 09:57
--- NOTE | 2020-03-28 09:59 | PDOC2 ---
MAGALIE FIGUEROA BROADCAST DESIGNER 03/28/20 0959: CARDIAC CONSULT DATE OF CONSULT Date of Consult DATE: 03/28/20 TIME: 09:46 REASON FOR CONSULT Reason for Consult: Rapid AFIB REFERRING PHYSICIAN Referring Physician: Dr. Valencia SOURCE Source: Chart review, Patient HISTORY OF PRESENT ILLNESS HISTORY OF PRESENT ILLNESS This is an 79 yo male who presented form [facility] secondary to shortness of breath, altered mental status, and fevers. H/o dementia. Was noted in AFIB with RVR, with prompted this consult. Patient confused, but providing simple responses. Denies any chest pain, palpitations, dizziness. Shakes his head up in down in response to shortness of breath. Guards reports that this is his usual response. PAST MEDICAL HISTORY CENTRAL NERVOUS SYSTEM: Dementia PAST SURGICAL HISTORY Past Surgical History: No pertinent history FAMILY HISTORY Family History: Family History Unknown SOCIAL HISTORY Smoke: No ALCOHOL: none Lives: Roommate (correctional facility ) CURRENT MEDICATIONS CURRENT MEDICATIONS Current Medications Medications (Trade) Dose Ordered Sig/Asa Route PRN Reason Start Time Stop Time Status Last Admin Dose Admin Sodium Chloride 1,000 ml @ 1,000 mls/hr 1X ONCE IV 03/27/20 16:30 03/27/20 17:29 DC 03/27/20 16:48 Diltiazem HCl 125 mg/Sodium Chloride 125 ml @ 5 mls/hr 1X ONCE IV 03/27/20 16:45 03/28/20 17:44 03/27/20 16:45 Diltiazem HCl (Cardizem Iv Push) 10 mg 1X ONCE IVP 03/27/20 16:45 03/27/20 16:55 DC 03/27/20 16:49 Diltiazem HCl (Cardizem Iv Push) 10 mg 1X ONCE IVP 03/27/20 17:30 03/27/20 17:37 DC 03/27/20 17:45 Acetaminophen (Tylenol Supp) 650 mg 1X ONCE TN 03/27/20 17:30 03/27/20 17:37 DC 03/27/20 17:30 Sodium Chloride 1,000 ml @ 1,000 mls/hr 1X ONCE IV 03/27/20 17:45 03/27/20 18:44 DC 03/27/20 17:45 Sodium Chloride 1,000 ml @ 125 mls/hr Q8H IV 03/27/20 17:34 03/28/20 05:06 DC 03/28/20 02:43 Piperacillin Sod/ Tazobactam Sod 2.25 gm/Sodium Chloride 50 ml @ 100 mls/hr Q6HRS IV 03/27/20 18:30 03/28/20 05:24 Enoxaparin Sodium (Lovenox 30mg Syringe) 30 mg BID SQ 03/27/20 21:00 03/28/20 08:33 Hydrocortisone Sodium Succinate (Solu-CORTEF) 100 mg 1X ONCE IV 03/27/20 18:30 03/27/20 18:31 DC 03/27/20 18:30 Vancomycin HCl (Vanco Per Pharmacy) 1 each 1X ONCE MC 03/27/20 18:30 03/27/20 18:31 DC 03/27/20 18:30 Vancomycin HCl 1.5 gm/Sodium Chloride 500 ml @ 250 mls/hr 1X ONCE IV 03/27/20 20:00 03/27/20 21:59 DC 03/27/20 20:25 Famotidine (Pepcid Vial) 20 mg QHS IVP 03/27/20 21:00 03/27/20 20:44 Sodium Chloride 1,000 ml @ 75 mls/hr [id number] IV 03/28/20 05:15 03/28/20 05:24 ALLERGIES ALLERGIES: Coded Allergies: No Known Drug Allergies (Unverified , 03/27/20) ROS Review of System 14 point ROS conducted with pertinent positives noted above in HPI, although limited due to mentation. PHYSICAL EXAM PHYSICAL EXAM visual exam conducted. Discussed with RN. General: Alert, Cooperative, No acute distress Heart: Regular rate Abdomen: Soft Extremities: No edema Skin: No significant lesion Neuro: Sensation intact Psych/Mental Status: Other (confuced ) MUSCULOSKELETAL: Osteoarthritic changes both hands VITALS/I&O VITALS/I&O: Vital Signs Date Time Temp Pulse Resp B/P (MAP) Pulse Ox O2 Delivery O2 Flow Rate FiO2 03/28/20 08:05 Nasal Cannula 3.0 03/28/20 08:00 97.6 56 103/56 (72) 100 97.6 03/28/20 05:59 18 l I & O 03/27/20 03/27/20 03/28/20 15:00 23:00 07:00 Intake Total 2050 ml 915 ml Output Total 230 ml 310 ml Balance 1820 ml 605 ml LABS Lab: Laboratory Tests Test 03/27/20 16:37 03/27/20 17:02 03/27/20 19:50 03/27/20 23:35 White Blood Count 13.8 x10^3/uL (4.0-11.0) H Red Blood Count 5.79 x10^6/uL (4.30-5.70) H Hemoglobin 16.7 g/dL (13.0-17.5) Hematocrit 51.0 % (39.0-53.0) Mean Corpuscular Volume 88 fL (79-100) Mean Corpuscular Hemoglobin 29 pg (25-35) Mean Corpuscular Hemoglobin Concent 33 g/dL (31-37) Red Cell Distribution Width 14.1 % (11.5-14.5) Platelet Count 230 x10^3/uL (140-400) Neutrophils (%) (Auto) 92 % (31-73) H Lymphocytes (%) (Auto) 5 % (24-48) L Monocytes (%) (Auto) 3 % (0-9) Eosinophils (%) (Auto) 0 % (0-3) Basophils (%) (Auto) 0 % (0-3) Neutrophils # (Auto) 12.7 x10^3/uL (1.8-7.7) H Lymphocytes # (Auto) 0.6 x10^3/uL (1.0-4.8) L Monocytes # (Auto) 0.4 x10^3/uL (0.0-1.1) Eosinophils # (Auto) 0.0 x10^3/uL (0.0-0.7) Basophils # (Auto) 0.0 x10^3/uL (0.0-0.2) Segmented Neutrophils % 83 % (35-66) H Band Neutrophils % 12 % (0-9) H Lymphocytes % 3 % (24-48) L Atypical Lymphocytes % (Manual) 1 % (0-0) H Monocytes % 1 % (0-10) Toxic Granulation Slight Toxic Vacuolation Slight Platelet Estimate Adequate (ADEQUATE) Sodium Level 151 mmol/L (136-145) H Potassium Level 3.9 mmol/L (3.5-5.1) Chloride Level 110 mmol/L (98-107) H Carbon Dioxide Level 29 mmol/L (21-32) Anion Gap 12 (6-14) Blood Urea Nitrogen 47 mg/dL (8-26) H Creatinine 1.9 mg/dL (0.7-1.3) H Estimated GFR (Cockcroft-Gault) 34.3 BUN/Creatinine Ratio 25 (6-20) H Glucose Level 120 mg/dL (70-99) H Lactic Acid Level 3.2 mmol/L (0.4-2.0) H 1.9 mmol/L (0.4-2.0) Calcium Level 8.5 mg/dL (8.5-10.1) Total Bilirubin 0.8 mg/dL (0.2-1.0) Aspartate Amino Transferase (AST) 60 U/L (15-37) H Alanine Aminotransferase (ALT) 21 U/L (16-63) Alkaline Phosphatase 38 U/L (46-116) L Troponin I Quantitative 1.430 ng/mL (0.000-0.055) 1.236 ng/mL (0.000-0.055) 1.061 ng/mL (0.000-0.055) Total Protein 6.7 g/dL (6.4-8.2) Albumin 2.4 g/dL (3.4-5.0) L Albumin/Globulin Ratio 0.6 (1.0-1.7) L Urine Collection Type U cath Urine Color Yellow Urine Clarity Hazy Urine pH 5.5 (<5.0-8.0) Urine Specific [place] >=1.030 (1.000-1.030) Urine Protein >=300 mg/dL (NEG-TRACE) Urine Glucose (UA) Negative mg/dL (NEG) Urine Ketones (Stick) 15 mg/dL (NEG) Urine Blood Moderate (NEG) Urine Nitrite Negative (NEG) Urine Bilirubin Small (NEG) Urine Urobilinogen Dipstick 1.0 mg/dL (0.2 mg/dL) Urine Leukocyte Esterase Negative (NEG) Urine RBC 3-5 /HPF (0-2) Urine WBC 1-4 /HPF (0-4) Urine Squamous Epithelial Cells None /LPF Urine Amorphous Sediment Present /HPF Urine Bacteria 0 /HPF (0-FEW) Urine Hyaline Casts Moderate /HPF Urine Granular Casts Few /HPF Urine Mucus Marked /LPF Fibrinogen 816 mg/dL (200-440) H D-Dimer (Fabiola) 3.39 ug/mlFEU (0.00-0.50) H Ammonia 10 mcmol/L (11-34) L Procalcitonin 0.63 ng/mL (0.00-0.10) H Influenza Type A Antigen Negative (NEGATIVE) Influenza Type B Antigen Negative (NEGATIVE) Test 03/28/20 04:50 White Blood Count 17.6 x10^3/uL (4.0-11.0) H Red Blood Count 5.15 x10^6/uL (4.30-5.70) Hemoglobin 14.8 g/dL (13.0-17.5) Hematocrit 46.1 % (39.0-53.0) Mean Corpuscular Volume 90 fL (79-100) Mean Corpuscular Hemoglobin 29 pg (25-35) Mean Corpuscular Hemoglobin Concent 32 g/dL (31-37) Red Cell Distribution Width 14.5 % (11.5-14.5) Platelet Count 195 x10^3/uL (140-400) Neutrophils (%) (Auto) 95 % (31-73) H Lymphocytes (%) (Auto) 3 % (24-48) L Monocytes (%) (Auto) 2 % (0-9) Eosinophils (%) (Auto) 0 % (0-3) Basophils (%) (Auto) 0 % (0-3) Neutrophils # (Auto) 16.7 x10^3/uL (1.8-7.7) H Lymphocytes # (Auto) 0.6 x10^3/uL (1.0-4.8) L Monocytes # (Auto) 0.3 x10^3/uL (0.0-1.1) Eosinophils # (Auto) 0.0 x10^3/uL (0.0-0.7) Basophils # (Auto) 0.0 x10^3/uL (0.0-0.2) Sodium Level 152 mmol/L (136-145) H Potassium Level 3.5 mmol/L (3.5-5.1) Chloride Level 117 mmol/L (98-107) H Carbon Dioxide Level 24 mmol/L (21-32) Anion Gap 11 (6-14) Blood Urea Nitrogen 39 mg/dL (8-26) H Creatinine 1.3 mg/dL (0.7-1.3) Estimated GFR (Cockcroft-Gault) 53.1 BUN/Creatinine Ratio 30 (6-20) H Glucose Level 187 mg/dL (70-99) H Calcium Level 7.4 mg/dL (8.5-10.1) L Total Bilirubin 0.8 mg/dL (0.2-1.0) Aspartate Amino Transferase (AST) 43 U/L (15-37) H Alanine Aminotransferase (ALT) 19 U/L (16-63) Alkaline Phosphatase 37 U/L (46-116) L Total Protein 5.3 g/dL (6.4-8.2) L Albumin 1.8 g/dL (3.4-5.0) L Albumin/Globulin Ratio 0.5 (1.0-1.7) L Laboratory Tests 03/27/20 16:37 03/28/20 04:50 Laboratory Tests 03/27/20 16:37 03/28/20 04:50 ASSESSMENT/PLAN ASSESSMENT/PLAN 1. Acute respiratory failure with probable COVID PNA 2. AFIB with RVR; Convert back to SR with PACs. Cardizem gtt on hold 3. Leukocytosis, lactic acidosis, fevers 4. NSTEMI; peak 1.4. Most probable type II, demand ischemia with multiple culprits noted 5. CYNTHIA 6 . Elevated LFTs 7. Metabolic encephalopathy 8. Dementia Recommendations Start low-dose metoprolol for rate control ASA therapy for now given short duration of AFIB in setting of PNA, probable COVID TSH, lipids Outpatient echo to assess LV systolic function IVFs, avoid nephrotoxins Ongoing antibiotic therapy as per ID Supportive care Await COVID testing although highly suspected ZORA EVANS MD 03/28/20 1611: CARDIAC CONSULT ASSESSMENT/PLAN ASSESSMENT/PLAN Patient seen and evaluated Acute respiratory failure with pneumonia and possibly COVID. On Ab. Continuing present treatment. Followed by pulmonary and ID. Atrial fibrillation with rapid ventricular response rate. Patient converted to sinus rhythm overnight and remains in sinus rhythm at this time. Being treated with low-dose beta-blockers. Continuing to monitor. Elevated troponin at 1.4. Consistent with demand type ischemia. Continuing medical treatment. Acute kidney injury. On IV fluids and monitoring lab. Thank you for allowing us to participate in the care of your patient. MAGALIE FIGUEROA APRN March 28, 2020 09:59 ZORA EVANS MD March 28, 2020 16:11
--- NOTE | 2020-03-28 10:50 | PDOC ---
Infectious Disease Note Vital Sign Vital Signs Vital Signs Date Time Temp Pulse Resp B/P (MAP) Pulse Ox O2 Delivery O2 Flow Rate FiO2 03/28/20 09:00 78 124/77 (93) 95 Nasal Cannula 3.0 03/28/20 08:00 97.6 97.6 03/28/20 05:59 18 Labs Lab Laboratory Tests Test 03/27/20 16:37 03/27/20 17:02 03/27/20 19:50 03/27/20 23:35 White Blood Count 13.8 x10^3/uL (4.0-11.0) Red Blood Count 5.79 x10^6/uL (4.30-5.70) Hemoglobin 16.7 g/dL (13.0-17.5) Hematocrit 51.0 % (39.0-53.0) Mean Corpuscular Volume 88 fL (79-100) Mean Corpuscular Hemoglobin 29 pg (25-35) Mean Corpuscular Hemoglobin Concent 33 g/dL (31-37) Red Cell Distribution Width 14.1 % (11.5-14.5) Platelet Count 230 x10^3/uL (140-400) Neutrophils (%) (Auto) 92 % (31-73) Lymphocytes (%) (Auto) 5 % (24-48) Monocytes (%) (Auto) 3 % (0-9) Eosinophils (%) (Auto) 0 % (0-3) Basophils (%) (Auto) 0 % (0-3) Neutrophils # (Auto) 12.7 x10^3/uL (1.8-7.7) Lymphocytes # (Auto) 0.6 x10^3/uL (1.0-4.8) Monocytes # (Auto) 0.4 x10^3/uL (0.0-1.1) Eosinophils # (Auto) 0.0 x10^3/uL (0.0-0.7) Basophils # (Auto) 0.0 x10^3/uL (0.0-0.2) Segmented Neutrophils % 83 % (35-66) Band Neutrophils % 12 % (0-9) Lymphocytes % 3 % (24-48) Atypical Lymphocytes % (Manual) 1 % (0-0) Monocytes % 1 % (0-10) Toxic Granulation Slight Toxic Vacuolation Slight Platelet Estimate Adequate (ADEQUATE) Sodium Level 151 mmol/L (136-145) Potassium Level 3.9 mmol/L (3.5-5.1) Chloride Level 110 mmol/L (98-107) Carbon Dioxide Level 29 mmol/L (21-32) Anion Gap 12 (6-14) Blood Urea Nitrogen 47 mg/dL (8-26) Creatinine 1.9 mg/dL (0.7-1.3) Estimated GFR (Cockcroft-Gault) 34.3 BUN/Creatinine Ratio 25 (6-20) Glucose Level 120 mg/dL (70-99) Lactic Acid Level 3.2 mmol/L (0.4-2.0) 1.9 mmol/L (0.4-2.0) Calcium Level 8.5 mg/dL (8.5-10.1) Total Bilirubin 0.8 mg/dL (0.2-1.0) Aspartate Amino Transf (AST/SGOT) 60 U/L (15-37) Alanine Aminotransferase (ALT/SGPT) 21 U/L (16-63) Alkaline Phosphatase 38 U/L (46-116) Troponin I Quantitative 1.430 ng/mL (0.000-0.055) 1.236 ng/mL (0.000-0.055) 1.061 ng/mL (0.000-0.055) Total Protein 6.7 g/dL (6.4-8.2) Albumin 2.4 g/dL (3.4-5.0) Albumin/Globulin Ratio 0.6 (1.0-1.7) Urine Collection Type U cath Urine Color Yellow Urine Clarity Hazy Urine pH 5.5 (<5.0-8.0) Urine Specific [place] >=1.030 (1.000-1.030) Urine Protein >=300 mg/dL (NEG-TRACE) Urine Glucose (UA) Negative mg/dL (NEG) Urine Ketones (Stick) 15 mg/dL (NEG) Urine Blood Moderate (NEG) Urine Nitrite Negative (NEG) Urine Bilirubin Small (NEG) Urine Urobilinogen Dipstick 1.0 mg/dL (0.2 mg/dL) Urine Leukocyte Esterase Negative (NEG) Urine RBC 3-5 /HPF (0-2) Urine WBC 1-4 /HPF (0-4) Urine Squamous Epithelial Cells None /LPF Urine Amorphous Sediment Present /HPF Urine Bacteria 0 /HPF (0-FEW) Urine Hyaline Casts Moderate /HPF Urine Granular Casts Few /HPF Urine Mucus Marked /LPF Fibrinogen 816 mg/dL (200-440) D-Dimer (Fabiola) 3.39 ug/mlFEU (0.00-0.50) Ammonia 10 mcmol/L (11-34) Procalcitonin 0.63 ng/mL (0.00-0.10) Influenza Type A Antigen Negative (NEGATIVE) Influenza Type B Antigen Negative (NEGATIVE) Test 03/28/20 04:50 White Blood Count 17.6 x10^3/uL (4.0-11.0) Red Blood Count 5.15 x10^6/uL (4.30-5.70) Hemoglobin 14.8 g/dL (13.0-17.5) Hematocrit 46.1 % (39.0-53.0) Mean Corpuscular Volume 90 fL (79-100) Mean Corpuscular Hemoglobin 29 pg (25-35) Mean Corpuscular Hemoglobin Concent 32 g/dL (31-37) Red Cell Distribution Width 14.5 % (11.5-14.5) Platelet Count 195 x10^3/uL (140-400) Neutrophils (%) (Auto) 95 % (31-73) Lymphocytes (%) (Auto) 3 % (24-48) Monocytes (%) (Auto) 2 % (0-9) Eosinophils (%) (Auto) 0 % (0-3) Basophils (%) (Auto) 0 % (0-3) Neutrophils # (Auto) 16.7 x10^3/uL (1.8-7.7) Lymphocytes # (Auto) 0.6 x10^3/uL (1.0-4.8) Monocytes # (Auto) 0.3 x10^3/uL (0.0-1.1) Eosinophils # (Auto) 0.0 x10^3/uL (0.0-0.7) Basophils # (Auto) 0.0 x10^3/uL (0.0-0.2) Sodium Level 152 mmol/L (136-145) Potassium Level 3.5 mmol/L (3.5-5.1) Chloride Level 117 mmol/L (98-107) Carbon Dioxide Level 24 mmol/L (21-32) Anion Gap 11 (6-14) Blood Urea Nitrogen 39 mg/dL (8-26) Creatinine 1.3 mg/dL (0.7-1.3) Estimated GFR (Cockcroft-Gault) 53.1 BUN/Creatinine Ratio 30 (6-20) Glucose Level 187 mg/dL (70-99) Calcium Level 7.4 mg/dL (8.5-10.1) Total Bilirubin 0.8 mg/dL (0.2-1.0) Aspartate Amino Transf (AST/SGOT) 43 U/L (15-37) Alanine Aminotransferase (ALT/SGPT) 19 U/L (16-63) Alkaline Phosphatase 37 U/L (46-116) Total Protein 5.3 g/dL (6.4-8.2) Albumin 1.8 g/dL (3.4-5.0) Albumin/Globulin Ratio 0.5 (1.0-1.7) Objective Assessment pt seen, consult dictated Plan Plan of Care / CAREY HERBERT MD March 28, 2020 10:50
[2020-03-28 11:09] LABS: CHOLESTEROL/HDL RATIO 4.8
--- NOTE | 2020-03-28 11:27 | CONS ---
DATE OF CONSULTATION: 03/28/2020 REQUESTING PHYSICIAN: Dr. Recinos. REASON FOR CONSULTATION: Fever and leukocytosis. HISTORY OF PRESENT ILLNESS: This is an 79-year-old gentleman who is an inmate at [facility] for 46 years. The patient does have mild dementia. The patient was brought in with fever, cough, shortness of breath, suspected COVID-19. The patient also was found to be in atrial fibrillation with RVR, given Cardizem, became hypotensive and admitted to the ICU on pressors. The vasopressors have improved. The patient is alert, awake. The patient had 101.6 temperature on admission with a white count of 17,000, also lactic acid up to 3.2. The patient had renal insufficiency, which has improved and pulmonary infiltrate. The patient is receiving Zosyn and vancomycin. The patient says he is feeling better. Denies any nausea, vomiting, or diarrhea. Denies any chest pain, shortness of breath, abdominal pain, urinary symptoms or bowel symptoms. PAST MEDICAL HISTORY: Positive for dementia, other medical history is unknown. SOCIAL HISTORY: Negative for smoking, alcohol or illicit drug use. ALLERGIES: No known drug allergies. CURRENT MEDICATIONS: Reviewed. REVIEW OF SYSTEMS: As per HPI, all other systems reviewed and are negative. PHYSICAL EXAMINATION: GENERAL: Alert, oriented to place and person gentleman, not in any distress. VITAL SIGNS: Stable. T-max is 101.6. HEENT: Both pupils are round and reacting. No conjunctival lesion. No lesion in the mouth. NECK: Supple, no JVP, no lymphadenopathy. LUNGS: Clear. HEART: S1 and S2 regular. ABDOMEN: Benign. EXTREMITIES: No edema or cyanosis. SKIN: Unremarkable. NEUROLOGIC: The patient is alert, awake, moves all the extremities. Memory is poor. LABORATORY DATA: White count is 17.6, platelets are normal. BUN and creatinine are improved to 39 and 1.3. Lactic acid improved to 1.9. Urinalysis unremarkable. Influenza screen is negative. Chest x-ray showed patchy pulmonary infiltrate. IMPRESSION: 1. Suspected COVID-19. 2. Fever. 3. Leukocytosis. 4. Hypoxia. 5. Hypotension. 6. Atrial fibrillation with rapid ventricular response. 7. Mild dementia. RECOMMENDATIONS: Agree with continuing vancomycin and Zosyn. Supportive care. We will follow the cultures and continue to follow. Thank you very much, Dr. Recinos, for giving me the opportunity to participate in this patient's care. CAREY HERBERT MD DR: DANA/rosi JOB#: [id number] / [id number]
[2020-03-28] MEDS: VANCOMYCIN PER PHARMACY MC PRN (14:41)
--- NOTE | 2020-03-28 15:00 | NUR ---
Pharmacy Vancomycin Dosing Note S:Consulted to monitor and dose vancomycin started 03/27/20. O:EMILIE MARIE is a 79 year old M with Sepsis . Height: 5 feet, 5 inches Weight: 56.2 kg [place] Body Weight: 61.50 Adjusted Body Weight: 59.38 Dosing Weight: Actual Other Antibiotics: ZOSYN LABS: Last BUN: Last Creatinine: 1.3 Creatinine Clearance: 32 mL/min Last WBC: 17.6 Last Procalcitonin: 0.63 Tmax (past 24 hours): 101 Microbiology: I/O: Drug Levels: Last level: on at Last dose given 03/28/20 at 2100 Vancomycin Dosing: Loading Dose: 1500 mg x1 Dosing Weight: Actual Target Trough: 15-20 A: Based on: WEIGHT AND RENAL FUNCTION, VANCOMYCIN 1.5GM IV BOLUS GIVEN, P: 1. Begin Vancomycin 1000 mg IV q24h TONIGHT 2. Follow up Trough level on 03/29/20 at 2030 3. Pharmacy will continue to monitor, follow and adjust therapy as needed. EVELIA [facility], 03/28/20 [id number]
--- NOTE | 2020-03-28 16:38 | PDOC ---
PULMONARY PROGRESS NOTES Vitals Vital Signs Date Time Temp Pulse Resp B/P (MAP) Pulse Ox O2 Delivery O2 Flow Rate FiO2 03/28/20 16:10 99.0 98 149/72 (97) 97 Nasal Cannula 3.0 99.0 03/28/20 12:02 16 Lungs: Crackles Labs Laboratory Tests Test 03/27/20 16:37 03/27/20 17:02 03/27/20 19:50 03/27/20 23:35 White Blood Count 13.8 x10^3/uL (4.0-11.0) Red Blood Count 5.79 x10^6/uL (4.30-5.70) Hemoglobin 16.7 g/dL (13.0-17.5) Hematocrit 51.0 % (39.0-53.0) Mean Corpuscular Volume 88 fL (79-100) Mean Corpuscular Hemoglobin 29 pg (25-35) Mean Corpuscular Hemoglobin Concent 33 g/dL (31-37) Red Cell Distribution Width 14.1 % (11.5-14.5) Platelet Count 230 x10^3/uL (140-400) Neutrophils (%) (Auto) 92 % (31-73) Lymphocytes (%) (Auto) 5 % (24-48) Monocytes (%) (Auto) 3 % (0-9) Eosinophils (%) (Auto) 0 % (0-3) Basophils (%) (Auto) 0 % (0-3) Neutrophils # (Auto) 12.7 x10^3/uL (1.8-7.7) Lymphocytes # (Auto) 0.6 x10^3/uL (1.0-4.8) Monocytes # (Auto) 0.4 x10^3/uL (0.0-1.1) Eosinophils # (Auto) 0.0 x10^3/uL (0.0-0.7) Basophils # (Auto) 0.0 x10^3/uL (0.0-0.2) Segmented Neutrophils % 83 % (35-66) Band Neutrophils % 12 % (0-9) Lymphocytes % 3 % (24-48) Atypical Lymphocytes % (Manual) 1 % (0-0) Monocytes % 1 % (0-10) Toxic Granulation Slight Toxic Vacuolation Slight Platelet Estimate Adequate (ADEQUATE) Sodium Level 151 mmol/L (136-145) Potassium Level 3.9 mmol/L (3.5-5.1) Chloride Level 110 mmol/L (98-107) Carbon Dioxide Level 29 mmol/L (21-32) Anion Gap 12 (6-14) Blood Urea Nitrogen 47 mg/dL (8-26) Creatinine 1.9 mg/dL (0.7-1.3) Estimated GFR (Cockcroft-Gault) 34.3 BUN/Creatinine Ratio 25 (6-20) Glucose Level 120 mg/dL (70-99) Lactic Acid Level 3.2 mmol/L (0.4-2.0) 1.9 mmol/L (0.4-2.0) Calcium Level 8.5 mg/dL (8.5-10.1) Total Bilirubin 0.8 mg/dL (0.2-1.0) Aspartate Amino Transf (AST/SGOT) 60 U/L (15-37) Alanine Aminotransferase (ALT/SGPT) 21 U/L (16-63) Alkaline Phosphatase 38 U/L (46-116) Troponin I Quantitative 1.430 ng/mL (0.000-0.055) 1.236 ng/mL (0.000-0.055) 1.061 ng/mL (0.000-0.055) Total Protein 6.7 g/dL (6.4-8.2) Albumin 2.4 g/dL (3.4-5.0) Albumin/Globulin Ratio 0.6 (1.0-1.7) Urine Collection Type U cath Urine Color Yellow Urine Clarity Hazy Urine pH 5.5 (<5.0-8.0) Urine Specific [place] >=1.030 (1.000-1.030) Urine Protein >=300 mg/dL (NEG-TRACE) Urine Glucose (UA) Negative mg/dL (NEG) Urine Ketones (Stick) 15 mg/dL (NEG) Urine Blood Moderate (NEG) Urine Nitrite Negative (NEG) Urine Bilirubin Small (NEG) Urine Urobilinogen Dipstick 1.0 mg/dL (0.2 mg/dL) Urine Leukocyte Esterase Negative (NEG) Urine RBC 3-5 /HPF (0-2) Urine WBC 1-4 /HPF (0-4) Urine Squamous Epithelial Cells None /LPF Urine Amorphous Sediment Present /HPF Urine Bacteria 0 /HPF (0-FEW) Urine Hyaline Casts Moderate /HPF Urine Granular Casts Few /HPF Urine Mucus Marked /LPF Fibrinogen 816 mg/dL (200-440) D-Dimer (Fabiola) 3.39 ug/mlFEU (0.00-0.50) Ammonia 10 mcmol/L (11-34) Procalcitonin 0.63 ng/mL (0.00-0.10) Influenza Type A Antigen Negative (NEGATIVE) Influenza Type B Antigen Negative (NEGATIVE) Test 03/28/20 04:50 White Blood Count 17.6 x10^3/uL (4.0-11.0) Red Blood Count 5.15 x10^6/uL (4.30-5.70) Hemoglobin 14.8 g/dL (13.0-17.5) Hematocrit 46.1 % (39.0-53.0) Mean Corpuscular Volume 90 fL (79-100) Mean Corpuscular Hemoglobin 29 pg (25-35) Mean Corpuscular Hemoglobin Concent 32 g/dL (31-37) Red Cell Distribution Width 14.5 % (11.5-14.5) Platelet Count 195 x10^3/uL (140-400) Neutrophils (%) (Auto) 95 % (31-73) Lymphocytes (%) (Auto) 3 % (24-48) Monocytes (%) (Auto) 2 % (0-9) Eosinophils (%) (Auto) 0 % (0-3) Basophils (%) (Auto) 0 % (0-3) Neutrophils # (Auto) 16.7 x10^3/uL (1.8-7.7) Lymphocytes # (Auto) 0.6 x10^3/uL (1.0-4.8) Monocytes # (Auto) 0.3 x10^3/uL (0.0-1.1) Eosinophils # (Auto) 0.0 x10^3/uL (0.0-0.7) Basophils # (Auto) 0.0 x10^3/uL (0.0-0.2) Sodium Level 152 mmol/L (136-145) Potassium Level 3.5 mmol/L (3.5-5.1) Chloride Level 117 mmol/L (98-107) Carbon Dioxide Level 24 mmol/L (21-32) Anion Gap 11 (6-14) Blood Urea Nitrogen 39 mg/dL (8-26) Creatinine 1.3 mg/dL (0.7-1.3) Estimated GFR (Cockcroft-Gault) 53.1 BUN/Creatinine Ratio 30 (6-20) Glucose Level 187 mg/dL (70-99) Calcium Level 7.4 mg/dL (8.5-10.1) Total Bilirubin 0.8 mg/dL (0.2-1.0) Aspartate Amino Transf (AST/SGOT) 43 U/L (15-37) Alanine Aminotransferase (ALT/SGPT) 19 U/L (16-63) Alkaline Phosphatase 37 U/L (46-116) Total Protein 5.3 g/dL (6.4-8.2) Albumin 1.8 g/dL (3.4-5.0) Albumin/Globulin Ratio 0.5 (1.0-1.7) Triglycerides Level 80 mg/dL (0-150) Cholesterol Level 86 mg/dL (0-200) LDL Cholesterol, Calculated 52 mg/dL (0-100) VLDL Cholesterol, Calculated 16 mg/dL (0-40) Non-HDL Cholesterol Calculated 68 mg/dL (0-129) HDL Cholesterol 18 mg/dL (40-60) Cholesterol/HDL Ratio 4.8 Thyroid Stimulating Hormone (TSH) 0.491 uIU/mL (0.358-3.74) Laboratory Tests Test 03/27/20 17:02 03/27/20 19:50 03/27/20 23:35 03/28/20 04:50 Urine Collection Type U cath Urine Color Yellow Urine Clarity Hazy Urine pH 5.5 (<5.0-8.0) Urine Specific [place] >=1.030 (1.000-1.030) Urine Protein >=300 mg/dL (NEG-TRACE) Urine Glucose (UA) Negative mg/dL (NEG) Urine Ketones (Stick) 15 mg/dL (NEG) Urine Blood Moderate (NEG) Urine Nitrite Negative (NEG) Urine Bilirubin Small (NEG) Urine Urobilinogen Dipstick 1.0 mg/dL (0.2 mg/dL) Urine Leukocyte Esterase Negative (NEG) Urine RBC 3-5 /HPF (0-2) Urine WBC 1-4 /HPF (0-4) Urine Squamous Epithelial Cells None /LPF Urine Amorphous Sediment Present /HPF Urine Bacteria 0 /HPF (0-FEW) Urine Hyaline Casts Moderate /HPF Urine Granular Casts Few /HPF Urine Mucus Marked /LPF Fibrinogen 816 mg/dL (200-440) D-Dimer (Fabiola) 3.39 ug/mlFEU (0.00-0.50) Lactic Acid Level 1.9 mmol/L (0.4-2.0) Ammonia 10 mcmol/L (11-34) Troponin I Quantitative 1.236 ng/mL (0.000-0.055) 1.061 ng/mL (0.000-0.055) Procalcitonin 0.63 ng/mL (0.00-0.10) Influenza Type A Antigen Negative (NEGATIVE) Influenza Type B Antigen Negative (NEGATIVE) White Blood Count 17.6 x10^3/uL (4.0-11.0) Red Blood Count 5.15 x10^6/uL (4.30-5.70) Hemoglobin 14.8 g/dL (13.0-17.5) Hematocrit 46.1 % (39.0-53.0) Mean Corpuscular Volume 90 fL (79-100) Mean Corpuscular Hemoglobin 29 pg (25-35) Mean Corpuscular Hemoglobin Concent 32 g/dL (31-37) Red Cell Distribution Width 14.5 % (11.5-14.5) Platelet Count 195 x10^3/uL (140-400) Neutrophils (%) (Auto) 95 % (31-73) Lymphocytes (%) (Auto) 3 % (24-48) Monocytes (%) (Auto) 2 % (0-9) Eosinophils (%) (Auto) 0 % (0-3) Basophils (%) (Auto) 0 % (0-3) Neutrophils # (Auto) 16.7 x10^3/uL (1.8-7.7) Lymphocytes # (Auto) 0.6 x10^3/uL (1.0-4.8) Monocytes # (Auto) 0.3 x10^3/uL (0.0-1.1) Eosinophils # (Auto) 0.0 x10^3/uL (0.0-0.7) Basophils # (Auto) 0.0 x10^3/uL (0.0-0.2) Sodium Level 152 mmol/L (136-145) Potassium Level 3.5 mmol/L (3.5-5.1) Chloride Level 117 mmol/L (98-107) Carbon Dioxide Level 24 mmol/L (21-32) Anion Gap 11 (6-14) Blood Urea Nitrogen 39 mg/dL (8-26) Creatinine 1.3 mg/dL (0.7-1.3) Estimated GFR (Cockcroft-Gault) 53.1 BUN/Creatinine Ratio 30 (6-20) Glucose Level 187 mg/dL (70-99) Calcium Level 7.4 mg/dL (8.5-10.1) Total Bilirubin 0.8 mg/dL (0.2-1.0) Aspartate Amino Transf (AST/SGOT) 43 U/L (15-37) Alanine Aminotransferase (ALT/SGPT) 19 U/L (16-63) Alkaline Phosphatase 37 U/L (46-116) Total Protein 5.3 g/dL (6.4-8.2) Albumin 1.8 g/dL (3.4-5.0) Albumin/Globulin Ratio 0.5 (1.0-1.7) Triglycerides Level 80 mg/dL (0-150) Cholesterol Level 86 mg/dL (0-200) LDL Cholesterol, Calculated 52 mg/dL (0-100) VLDL Cholesterol, Calculated 16 mg/dL (0-40) Non-HDL Cholesterol Calculated 68 mg/dL (0-129) HDL Cholesterol 18 mg/dL (40-60) Cholesterol/HDL Ratio 4.8 Thyroid Stimulating Hormone (TSH) 0.491 uIU/mL (0.358-3.74) Impression . Full consult dictated Agree with current medical management COVID-19 suspect HARVEY SANDS MD March 28, 2020 16:38
[2020-03-28] MEDS: VANCOMYCIN 1 GM in IV NORMAL SALINE 250ML 250 ML IV SCH (20:30)
[2020-03-28] MEDS: FAMOTIDINE 20 MG/2 ML VIAL IVP SCH (20:31)
[2020-03-28] MEDS: METOPROLOL TART IMMED RELEASE 25 MG TABLET. PO SCH (20:31)
--- NOTE | 2020-03-28 22:06 | CONS ---
DATE OF CONSULTATION: 03/28/2020 ATTENDING PHYSICIAN: Francisco Minor MD REASON FOR CONSULTATION: The patient seen in pulmonary consultation at the request of Dr. Minor for abnormal chest x-ray revealing patchy airspace infiltrates. HISTORY OF PRESENT ILLNESS: The patient is an 79-year-old gentleman who is an inmate at [facility], has dementia. Presented with fever, cough, shortness of breath, suspected for BEYE-MAOKV-6. The patient was also found to be in AFib with rapid ventricular response. He was treated for the above. He was hypotensive initially. He is currently on pressors. He is in the intensive care unit. His white count was elevated. His temperature was 101.6. The patient received vancomycin and Zosyn. He is currently being treated with empiric antibiotics and Infectious Disease Service has seen the patient. His HCMX-FOSRS-6 is pending. PAST MEDICAL HISTORY: Positive for dementia. Otherwise, no other medical history. PAST SURGICAL HISTORY: No recent major surgeries. ALLERGIES: No known drug allergies. CURRENT MEDICATION LIST: Reviewed. REVIEW OF SYSTEMS: As indicated above, otherwise other systems could not be adequately reviewed. PHYSICAL EXAMINATION: VITAL SIGNS: Stable. O2 saturation is greater than 92%. HEENT: Eyes, the sclerae were nonicteric. NECK: Jugular venous distention was not elevated. No lymphadenopathy. CHEST: Full expansion. LUNGS: Crackles. No wheezes. CARDIOVASCULAR: Regular rate and rhythm with S1, S2. No S3. ABDOMEN: Soft, nontender. EXTREMITIES: No clubbing, cyanosis, or edema. LABORATORY DATA: White count was 17,000. Electrolytes were noted. BUN and creatinine noted. BUN is elevated. AST was 43, ALT was normal. Troponin was elevated. Albumin was 1.8. Procalcitonin was 0.63. MSRM-LZRIY-6 is pending. Chest x-rays as indicated above. IMPRESSION: 1. Acute hypoxemic respiratory failure. 2. Abnormal x-ray compatible with pneumonia, suspect Gram-negative, possibly Gram-positive, possibly related to COVID-19. 3. Fever. 4. Leukocytosis. 5. COVID-19 suspect. 6. Atrial fibrillation with rapid ventricular response. 7. Dementia. PLAN: 1. Continue empiric antibiotics. 2. Oxygen supplementation. 3. Follow up on EKOZ-ODFUF-0 testing. 4. Follow Cardiology input. 5. DVT and GI prophylaxis. Total cumulative critical care time of 45 minutes reviewing data, chest x-ray and labs, along with formulating a plan. The above was discussed with RN and RT. HARVEY SANDS MD DR: DEBBIE/rosi JOB#: [id number] / [id number]
[2020-03-29] VITALS (11 sets, daily range): BP systolic 86–119; BP diastolic 54–63
[2020-03-29] MEDS: IV 1/2 NORMAL SALINE 1,000 ML IV SCH ×3 (04:08→23:54)
[2020-03-29] MEDS: PIPERACILLIN/TAZOBACTAM 2.25 GM in IV NORMAL SALINE 50ML 50 ML IV SCH ×4 (05:43→23:53)
[2020-03-29] MEDS: ENOXAPARIN 30 MG/0.3 ML SYRINGE. SQ SCH ×2 (08:11→20:09)
[2020-03-29] MEDS: ASPIRIN ENTERIC COATED 81 MG TABLET.DR. PO SCH (08:13)
[2020-03-29] MEDS: METOPROLOL TART IMMED RELEASE 25 MG TABLET. PO SCH ×2 (09:04→21:00)
--- NOTE | 2020-03-29 10:28 | PDOC ---
SUBJECTIVE ROS stable OBJECTIVE Vital Signs Vital Signs Date Time Temp Pulse Resp B/P (MAP) Pulse Ox O2 Delivery O2 Flow Rate FiO2 03/29/20 09:04 60 114/59 03/29/20 08:00 Nasal Cannula 3.0 03/29/20 05:13 18 99 03/29/20 03:10 98.1 98.1 I & 0 Intake and Output 03/29/20 07:00 Intake Total 100 ml Output Total 1450 ml Balance -1350 ml Intake Oral 50 ml IV Total 50 ml Output Urine Total 1450 ml PHYSICAL EXAM Physical Exam GEN: NAD HEEN: OM moist , On O2 by NC NECK: supple CVS: S1S2 RESP: decreased at bases , Non labored GI: BS + ve, NO Bruit, Non Tender, Non Distended : No CVA tenderness, No Suprapubic Tenderness, [place] + SKIN No Rash NEURO- Grossly normal Ext- No edema DIAGNOSIS/ASSESSMENT Assessment & Plan CYNTHIA- vasomotor/Hypotensive Improving, No labs this am UA- unremarkable , K and Bicarb normal , baseline unknown Supportive care, strict I/O, avoid nephrotoxins HyperNatremia - Labs ordered Acute pneumonia, suspected covid-19 Fever/ Leukocytosis. Ac Resp failure with Hypoxia- On O2 by NC Hypotension -better required pressors Atrial fibrillation with rapid ventricular response. Mild dementia. COMMENT/RELEVANT DATA Meds Current Medications Medications (Trade) Dose Ordered Sig/Asa Start Time Stop Time Status Last Admin Dose Admin Acetaminophen (Tylenol Supp) 650 mg PRN Q4HRS PRN 03/27/20 18:15 Acetaminophen (Tylenol) 1,000 mg 1X ONCE 03/27/20 16:30 03/27/20 16:55 DC Aspirin (Ecotrin) 81 mg [id number] 03/29/20 08:00 03/29/20 08:13 81 MG Diltiazem HCl (Cardizem Iv Push) 10 mg 1X ONCE 03/27/20 17:30 03/27/20 17:37 DC 03/27/20 17:45 10 MG Diltiazem HCl 125 mg/Sodium Chloride 125 ml @ 5 mls/hr 1X ONCE 03/27/20 16:45 03/28/20 17:44 DC 03/27/20 16:45 5 MLS/HR Docusate Sodium (Colace) 100 mg PRN BID PRN 03/27/20 18:15 Dopamine HCl/ Dextrose 0 ml @ As Directed STK-MED ONCE 03/27/20 18:18 03/27/20 18:19 DC Enoxaparin Sodium (Lovenox 30mg Syringe) 30 mg BID 03/27/20 21:00 03/29/20 08:11 30 MG Famotidine (Pepcid Vial) 20 mg QHS 03/27/20 21:00 03/28/20 20:31 20 MG Hydrocortisone Sodium Succinate (Solu-CORTEF) 100 mg 1X ONCE 03/27/20 18:30 03/27/20 18:31 DC 03/27/20 18:30 100 MG Lorazepam (Ativan Inj) 1 mg PRN Q4HRS PRN 03/29/20 00:00 03/29/20 00:02 1 MG Metoprolol Tartrate (Lopressor) 25 mg BID 03/28/20 21:00 03/29/20 09:04 25 MG Ondansetron HCl (Zofran) 4 mg PRN Q4HRS PRN 03/27/20 18:15 Piperacillin Sod/ Tazobactam Sod 2.25 gm/Sodium Chloride 50 ml @ 100 mls/hr Q6HRS 03/27/20 18:30 03/29/20 05:43 100 MLS/HR Piperacillin Sod/ Tazobactam Sod 3.375 gm/Sodium Chloride 50 ml @ 100 mls/hr Q6HRS 03/28/20 00:00 03/27/20 18:15 DC Sodium Chloride 1,000 ml @ 75 mls/hr [id number] 03/28/20 05:15 03/29/20 08:11 75 MLS/HR Sodium Chloride (Normal Saline Flush) 10 ml QSHIFT PRN 03/27/20 18:30 Vancomycin HCl (Vanco Per Pharmacy) 1 each PRN DAILY PRN 03/28/20 14:45 03/28/20 14:41 1 EACH Vancomycin HCl (Vancomycin Trough Level) 1 each 1X ONCE 03/29/20 20:30 03/29/20 20:31 Vancomycin HCl 1.5 gm/Sodium Chloride 500 ml @ 250 mls/hr 1X ONCE 03/27/20 20:00 03/27/20 21:59 DC 03/27/20 20:25 250 MLS/HR Vancomycin HCl 1 gm/Sodium Chloride 250 ml @ 250 mls/hr Q24H 03/28/20 21:00 03/28/20 20:30 250 MLS/HR Results All relevant outside records, renal labs, imaging studies, telemetry/EKG's were reviewed. MERISSA DIAZ MD March 29, 2020 10:28
--- NOTE | 2020-03-29 10:36 | PDOC ---
Infectious Disease Note Subjective Subjective awake, feeling ok ROS ROS no n/v/d/sob Vital Sign Vital Signs Vital Signs Date Time Temp Pulse Resp B/P (MAP) Pulse Ox O2 Delivery O2 Flow Rate FiO2 03/29/20 09:04 60 114/59 03/29/20 08:00 Nasal Cannula 3.0 03/29/20 05:13 18 99 03/29/20 03:10 98.1 98.1 Physical Exam PHYSICAL EXAM PHYSICAL EXAMINATION: GENERAL: Alert, oriented to place and person gentleman, not in any distress. VITAL SIGNS: Stable. HEENT: Both pupils are round and reacting. No conjunctival lesion. No lesion in the mouth. NECK: Supple, no JVP, no lymphadenopathy. LUNGS: Clear. HEART: S1 and S2 regular. ABDOMEN: Benign. EXTREMITIES: No edema or cyanosis. SKIN: Unremarkable. NEUROLOGIC: The patient is alert, awake, moves all the extremities. Memory is poor. Labs Micro Microbiology 03/27/20 Blood Culture - Preliminary, Resulted NO GROWTH AFTER 1 DAY Objective Assessment 1. Suspected COVID-19. 2. Fever. 3. Leukocytosis. 4. Hypoxia. 5. Hypotension. 6. Atrial fibrillation with rapid ventricular response. 7. Mild dementia. Plan Plan of Care vancomycin and Zosyn. Supportive care. We will follow the cultures and continue to follow CAREY HERBERT MD March 29, 2020 10:36
--- NOTE | 2020-03-29 10:52 | PDOC ---
PULMONARY PROGRESS NOTES Subjective pt on nasal canula no distress Vitals Vital Signs Date Time Temp Pulse Resp B/P (MAP) Pulse Ox O2 Delivery O2 Flow Rate FiO2 03/29/20 09:04 60 114/59 03/29/20 08:00 Nasal Cannula 3.0 03/29/20 05:13 18 99 03/29/20 03:10 98.1 98.1 Comments visual exam done due to COVID 19 no soa,,no distress no edema Labs Laboratory Tests Test 03/27/20 16:37 03/27/20 17:02 03/27/20 19:50 03/27/20 23:35 White Blood Count 13.8 x10^3/uL (4.0-11.0) Red Blood Count 5.79 x10^6/uL (4.30-5.70) Hemoglobin 16.7 g/dL (13.0-17.5) Hematocrit 51.0 % (39.0-53.0) Mean Corpuscular Volume 88 fL (79-100) Mean Corpuscular Hemoglobin 29 pg (25-35) Mean Corpuscular Hemoglobin Concent 33 g/dL (31-37) Red Cell Distribution Width 14.1 % (11.5-14.5) Platelet Count 230 x10^3/uL (140-400) Neutrophils (%) (Auto) 92 % (31-73) Lymphocytes (%) (Auto) 5 % (24-48) Monocytes (%) (Auto) 3 % (0-9) Eosinophils (%) (Auto) 0 % (0-3) Basophils (%) (Auto) 0 % (0-3) Neutrophils # (Auto) 12.7 x10^3/uL (1.8-7.7) Lymphocytes # (Auto) 0.6 x10^3/uL (1.0-4.8) Monocytes # (Auto) 0.4 x10^3/uL (0.0-1.1) Eosinophils # (Auto) 0.0 x10^3/uL (0.0-0.7) Basophils # (Auto) 0.0 x10^3/uL (0.0-0.2) Segmented Neutrophils % 83 % (35-66) Band Neutrophils % 12 % (0-9) Lymphocytes % 3 % (24-48) Atypical Lymphocytes % (Manual) 1 % (0-0) Monocytes % 1 % (0-10) Toxic Granulation Slight Toxic Vacuolation Slight Platelet Estimate Adequate (ADEQUATE) Sodium Level 151 mmol/L (136-145) Potassium Level 3.9 mmol/L (3.5-5.1) Chloride Level 110 mmol/L (98-107) Carbon Dioxide Level 29 mmol/L (21-32) Anion Gap 12 (6-14) Blood Urea Nitrogen 47 mg/dL (8-26) Creatinine 1.9 mg/dL (0.7-1.3) Estimated GFR (Cockcroft-Gault) 34.3 BUN/Creatinine Ratio 25 (6-20) Glucose Level 120 mg/dL (70-99) Lactic Acid Level 3.2 mmol/L (0.4-2.0) 1.9 mmol/L (0.4-2.0) Calcium Level 8.5 mg/dL (8.5-10.1) Total Bilirubin 0.8 mg/dL (0.2-1.0) Aspartate Amino Transf (AST/SGOT) 60 U/L (15-37) Alanine Aminotransferase (ALT/SGPT) 21 U/L (16-63) Alkaline Phosphatase 38 U/L (46-116) Troponin I Quantitative 1.430 ng/mL (0.000-0.055) 1.236 ng/mL (0.000-0.055) 1.061 ng/mL (0.000-0.055) Total Protein 6.7 g/dL (6.4-8.2) Albumin 2.4 g/dL (3.4-5.0) Albumin/Globulin Ratio 0.6 (1.0-1.7) Urine Collection Type U cath Urine Color Yellow Urine Clarity Hazy Urine pH 5.5 (<5.0-8.0) Urine Specific [place] >=1.030 (1.000-1.030) Urine Protein >=300 mg/dL (NEG-TRACE) Urine Glucose (UA) Negative mg/dL (NEG) Urine Ketones (Stick) 15 mg/dL (NEG) Urine Blood Moderate (NEG) Urine Nitrite Negative (NEG) Urine Bilirubin Small (NEG) Urine Urobilinogen Dipstick 1.0 mg/dL (0.2 mg/dL) Urine Leukocyte Esterase Negative (NEG) Urine RBC 3-5 /HPF (0-2) Urine WBC 1-4 /HPF (0-4) Urine Squamous Epithelial Cells None /LPF Urine Amorphous Sediment Present /HPF Urine Bacteria 0 /HPF (0-FEW) Urine Hyaline Casts Moderate /HPF Urine Granular Casts Few /HPF Urine Mucus Marked /LPF Fibrinogen 816 mg/dL (200-440) D-Dimer (Fabiola) 3.39 ug/mlFEU (0.00-0.50) Ammonia 10 mcmol/L (11-34) Procalcitonin 0.63 ng/mL (0.00-0.10) Influenza Type A Antigen Negative (NEGATIVE) Influenza Type B Antigen Negative (NEGATIVE) Test 03/28/20 04:50 White Blood Count 17.6 x10^3/uL (4.0-11.0) Red Blood Count 5.15 x10^6/uL (4.30-5.70) Hemoglobin 14.8 g/dL (13.0-17.5) Hematocrit 46.1 % (39.0-53.0) Mean Corpuscular Volume 90 fL (79-100) Mean Corpuscular Hemoglobin 29 pg (25-35) Mean Corpuscular Hemoglobin Concent 32 g/dL (31-37) Red Cell Distribution Width 14.5 % (11.5-14.5) Platelet Count 195 x10^3/uL (140-400) Neutrophils (%) (Auto) 95 % (31-73) Lymphocytes (%) (Auto) 3 % (24-48) Monocytes (%) (Auto) 2 % (0-9) Eosinophils (%) (Auto) 0 % (0-3) Basophils (%) (Auto) 0 % (0-3) Neutrophils # (Auto) 16.7 x10^3/uL (1.8-7.7) Lymphocytes # (Auto) 0.6 x10^3/uL (1.0-4.8) Monocytes # (Auto) 0.3 x10^3/uL (0.0-1.1) Eosinophils # (Auto) 0.0 x10^3/uL (0.0-0.7) Basophils # (Auto) 0.0 x10^3/uL (0.0-0.2) Sodium Level 152 mmol/L (136-145) Potassium Level 3.5 mmol/L (3.5-5.1) Chloride Level 117 mmol/L (98-107) Carbon Dioxide Level 24 mmol/L (21-32) Anion Gap 11 (6-14) Blood Urea Nitrogen 39 mg/dL (8-26) Creatinine 1.3 mg/dL (0.7-1.3) Estimated GFR (Cockcroft-Gault) 53.1 BUN/Creatinine Ratio 30 (6-20) Glucose Level 187 mg/dL (70-99) Calcium Level 7.4 mg/dL (8.5-10.1) Total Bilirubin 0.8 mg/dL (0.2-1.0) Aspartate Amino Transf (AST/SGOT) 43 U/L (15-37) Alanine Aminotransferase (ALT/SGPT) 19 U/L (16-63) Alkaline Phosphatase 37 U/L (46-116) Total Protein 5.3 g/dL (6.4-8.2) Albumin 1.8 g/dL (3.4-5.0) Albumin/Globulin Ratio 0.5 (1.0-1.7) Triglycerides Level 80 mg/dL (0-150) Cholesterol Level 86 mg/dL (0-200) LDL Cholesterol, Calculated 52 mg/dL (0-100) VLDL Cholesterol, Calculated 16 mg/dL (0-40) Non-HDL Cholesterol Calculated 68 mg/dL (0-129) HDL Cholesterol 18 mg/dL (40-60) Cholesterol/HDL Ratio 4.8 Thyroid Stimulating Hormone (TSH) 0.491 uIU/mL (0.358-3.74) Comments cxr mild bilateral patchy infiltrates Impression . 1. Acute hypoxemic respiratory failure. 2. Abnormal x-ray compatible with pneumonia, suspect Gram-negative, possibly Gram-positive, possibly related to COVID-19. 3. Fever. 4. Leukocytosis. 5. COVID-19 suspect. 6. Atrial fibrillation with rapid ventricular response. 7. Dementia. PLAN: 1. Continue empiric antibiotics. 2. Oxygen supplementation. 3. Follow up on IBAQ-[id number] testing. 4. Follow Cardiology input. 5. DVT and GI prophylaxis. Total cumulative critical care time of 45 minutes reviewing data, chest x-ray and labs, along with formulating a plan. The above was discussed with RN and RT. Plan . PLAN: 1. Continue empiric antibiotics. 2. Oxygen supplementation. 3. Follow up on BTOW-[id number]-0 testing. 4. Follow Cardiology input. 5. DVT and GI prophylaxis. Total cumulative critical care time of 30 minutes reviewing data, chest x-ray and labs, along with formulating a plan. The above was discussed with RN and RT. AURY DIETRICH MD March 29, 2020 10:52
--- NOTE | 2020-03-29 11:01 | NUR ---
IP: Pt is COVID + requiring airborne/contact precautions using a face shield.
[2020-03-29 11:24] LABS: CALCIUM 7.2 mg/dL (8.5-10.1); CREATININE 0.9 mg/dL (0.7-1.3); GFR 81.2; POTASSIUM 3.2 mmol/L (3.5-5.1)
--- NOTE | 2020-03-29 11:51 | PDOC ---
MARIO ALBERTO FRITZ STAFF ASSISTANT 03/29/20 1151: CARDIO Progress Notes Date and Time Date of Service 03/29/2020 Time of Evaluation 1030 Subjective Subjective: Other (asleep, no distress) Vitals Vitals Vital Signs Date Time Temp Pulse Resp B/P (MAP) Pulse Ox O2 Delivery O2 Flow Rate FiO2 03/29/20 09:04 60 114/59 03/29/20 08:00 Nasal Cannula 3.0 03/29/20 05:13 18 99 03/29/20 03:10 98.1 98.1 Weight Weight [ ] Input and Output Intake and Output Intake and Output 03/29/20 07:00 Intake Total 100 ml Output Total 1450 ml Balance -1350 ml Intake Oral 50 ml IV Total 50 ml Output Urine Total 1450 ml Laboratory Labs Laboratory Tests Test 03/29/20 11:00 Sodium Level 154 mmol/L (136-145) Potassium Level 3.2 mmol/L (3.5-5.1) Chloride Level 119 mmol/L (98-107) Carbon Dioxide Level 28 mmol/L (21-32) Anion Gap 7 (6-14) Blood Urea Nitrogen 27 mg/dL (8-26) Creatinine 0.9 mg/dL (0.7-1.3) Estimated GFR (Cockcroft-Gault) 81.2 Glucose Level 78 mg/dL (70-99) Calcium Level 7.2 mg/dL (8.5-10.1) Microbiology Micro Microbiology 03/27/20 Blood Culture - Preliminary, Resulted NO GROWTH AFTER 1 DAY Physical Exam Chest: Symmetric LUNGS: Other (diminished, CXR reviewed) Heart: RRR (SR with PACs) Extremities: No Edema Neurology: other (asllep) Other Exams Discussed with RN, pt acting confuse today when awake. No discomfort, labs reviewed, awaiting covid test result Assessment Assessment 1. Acute respiratory failure with probable COVID PNA, pulmonary following. 2. AFIB with RVR; New? Maintaining SR with PACs 3. Leukocytosis, lactic acidosis, fevers 4. CYNTHIA with hypernatremia: Cr back to baseline. Nephrology following 5. NSTEMI; peak 1.4. Most probable type II, demand ischemia with multiple culprits noted 6. Metabolic encephalopathy with underlying dementia Recommendations 1. Continue metoprolol. Replace K. Check Mg 2. ASA therapy for now given short duration of AFIB in setting of PNA, probable COVID. HDL is low but otherwise lipids are very well controlled. Unclear if pt is on [facility]in at [facility]. 3. Outpatient echo to assess LV systolic function 4. void nephrotoxins. Ongoing antibiotic therapy as per ID 5. Await COVID testing although highly suspected ZORA EVANS MD 03/29/20 1553: CARDIO Progress Notes Assessment Assessment Patient seen and evaluated I agree with our physician locums urgent care evaluation and plan as above. Acute respiratory failure with probable COVID PNA, pulmonary following. Future echo. AFIB with RVR; Maintaining SR with PACs. Continuing beta-blockers. CYNTHIA with hypernatremia: Cr back to baseline. Nephrology following NSTEMI; peak 1.4. Most probable type II, demand ischemia with multiple culprits noted MARIO ALBERTO FRITZ APRN March 29, 2020 11:51 ZORA EVANS MD March 29, 2020 15:53
[2020-03-29] MEDS ORDERED: POTASSIUM CHLORIDE 20 MEQ TABLET.ER. PO ONE (12:00)
--- NOTE | 2020-03-29 12:29 | PDOC ---
[facility] [facility] PROGRESS NOTE Chief Complaint Chief Complaint COVID-19 syndrome with fulminant respiratory failure Pneumonia Dehydration Elevated troponin Severe protein calorie malnutrition Acute kidney injury Debility History of Present Illness History of Present Illness 03/29/2020 Patient seen and examined in the [place] [address] ICU He is on oxygen per nasal cannula His COVID test just came back positive He is pleasantly confused and mumbling Discussed with RN and corrections officers Chart reviewed He is extremely ill and encephalopathic plus he has chronic psychiatric issues 03/28/2020 Patient seen and examined in the [place] [address] ICU Discussed with RN He has 2 corrections officers present Chart reviewed He is critically Vitals/I&O Vitals/I&O: Vital Signs Date Time Temp Pulse Resp B/P (MAP) Pulse Ox O2 Delivery O2 Flow Rate FiO2 03/29/20 09:04 60 114/59 03/29/20 08:00 Nasal Cannula 3.0 03/29/20 05:13 18 99 03/29/20 03:10 98.1 98.1 I & O 03/28/20 03/28/20 03/29/20 15:00 23:00 07:00 Intake Total 50 ml 50 ml Output Total 400 ml 400 ml 650 ml Balance -350 ml -350 ml -650 ml Physical Exam Physical Exam: PHYSICAL EXAMINATION: GENERAL: Pleasantly confused VITAL SIGNS: Stable. HEENT: Both pupils are round and reacting. No conjunctival lesion. No lesion in the mouth. NECK: Supple, no JVP, no lymphadenopathy. LUNGS: Clear. HEART: S1 and S2 regular. ABDOMEN: Benign. EXTREMITIES: No edema or cyanosis. SKIN: Unremarkable. NEUROLOGIC: The patient is alert, awake, moves all the extremities. Memory is poor. General: mild distress, Other (Extremely confused) Heart: Regular rate Lungs: Crackles Abdomen: Soft Extremities: No clubbing, No edema Skin: No rashes, No significant lesion Labs Labs: Laboratory Tests Test 03/29/20 11:00 Sodium Level 154 mmol/L (136-145) Potassium Level 3.2 mmol/L (3.5-5.1) Chloride Level 119 mmol/L (98-107) Carbon Dioxide Level 28 mmol/L (21-32) Anion Gap 7 (6-14) Blood Urea Nitrogen 27 mg/dL (8-26) Creatinine 0.9 mg/dL (0.7-1.3) Estimated GFR (Cockcroft-Gault) 81.2 Glucose Level 78 mg/dL (70-99) Calcium Level 7.2 mg/dL (8.5-10.1) Magnesium Level 2.8 mg/dL (1.8-2.4) Review of Systems Review of Systems: Unable to obtain he is too confused Assessment and Plan Assessmemt and Plan Problems Medical Problems: (1) COVID-19 virus infection Status: Acute (2) Rapid atrial fibrillation Status: Acute 1. Severe respiratory failure secondary to COVID-19 2. Severe encephalopathy 3. DEHYDRATION 4. elevated troponin i 5. severe protein-caloric malnutrition 6. CYNTHIA 7. Severe psychiatric issues (he stays in a level 6 psychiatric unit at the [facility]) Plan ICU monitoring IV antibiotics IV fluids Trend labs Home meds DVT prophylaxis IV Pepcid Follow cultures Booker to bedside drainage Appreciate specialist input Prognosis very guarded at best He is critically ill Total time 33-minute Comment Review of Relevant I have reviewed the following items chris (where applicable) has been applied. Medications: Current Medications Medications (Trade) Dose Ordered Sig/Asa Route PRN Reason Start Time Stop Time Status Last Admin Dose Admin Vancomycin HCl (Vanco Per Pharmacy) 1 each PRN DAILY PRN MC SEE COMMENTS 03/28/20 14:45 03/28/20 14:41 Vancomycin HCl 1 gm/Sodium Chloride 250 ml @ 250 mls/hr Q24H IV 03/28/20 21:00 03/28/20 20:30 Aspirin (Ecotrin) 81 mg DAILYWBKFT PO 03/29/20 08:00 03/29/20 08:13 Metoprolol Tartrate (Lopressor) 25 mg BID PO 03/28/20 21:00 03/29/20 09:04 Lorazepam (Ativan Inj) 1 mg PRN Q4HRS PRN IVP ANXIETY / AGITATION 03/29/20 00:00 03/29/20 00:02 KERWIN MANDUJANO III DO March 29, 2020 12:29
[2020-03-29] MEDS: VANCOMYCIN PER PHARMACY MC PRN (13:40)
[2020-03-29] MEDS: FAMOTIDINE 20 MG/2 ML VIAL IVP SCH (20:08)
[2020-03-29] MEDS: VANCOMYCIN 1 GM in IV NORMAL SALINE 250ML 250 ML IV SCH (21:30)
[2020-03-30] VITALS (10 sets, daily range): BP systolic 113–140; BP diastolic 51–74
[2020-03-30] MEDS: VANCOMYCIN PER PHARMACY MC PRN ×2 (00:19→08:07)
--- NOTE | 2020-03-30 00:19 | NUR ---
Pharmacy Vancomycin Dosing Note S:Consulted to monitor and dose vancomycin started 03/27/20. O:EMILIE MARIE is a 79 year old M with Sepsis . Height: 5 feet, 5 inches Weight: 56.2 kg [place] Body Weight: 61.50 Adjusted Body Weight: 59.38 Dosing Weight: Actual Other Antibiotics: ZOSYN LABS: Last BUN: 27 Last Creatinine: 0.9 Creatinine Clearance: improved to 47 ml/min mL/min Last WBC: 17.6 Last Procalcitonin: 0.63 Tmax (past 24 hours): 101 Microbiology: I/O: 100 / 1450 Drug Levels: Last Trough level: 7 on 03/29/20 at 2030 Last dose given 03/28/20 at 2100 Vancomycin Dosing: Loading Dose: 1500 mg x1 Dosing Weight: Actual Target Trough: 15-20 A: Based on: TROUGH P: 1. Begin Vancomycin 1000 mg IV q12h 2. Follow up Trough level on 03/31/20 at 0930 3. Pharmacy will continue to monitor, follow and adjust therapy as needed. ASNJUANA BAIG RPH, 03/30/20 0019 Signed: 03/30/20 at 0020 by SANJUANA BAIG RPH PHA
[2020-03-30] MEDS: PIPERACILLIN/TAZOBACTAM 2.25 GM in IV NORMAL SALINE 50ML 50 ML IV SCH ×4 (05:26→23:15)
[2020-03-30] MEDS: METOPROLOL TART IMMED RELEASE 25 MG TABLET. PO SCH ×2 (08:39→20:13)
[2020-03-30] MEDS: ENOXAPARIN 30 MG/0.3 ML SYRINGE. SQ SCH ×2 (08:39→20:13)
[2020-03-30] MEDS: ASPIRIN ENTERIC COATED 81 MG TABLET.DR. PO SCH (08:39)
--- NOTE | 2020-03-30 08:47 | PDOC ---
SUBJECTIVE ROS stable OBJECTIVE Vital Signs Vital Signs Date Time Temp Pulse Resp B/P (MAP) Pulse Ox O2 Delivery O2 Flow Rate FiO2 03/30/20 08:39 57 139/65 03/30/20 06:00 28 95 Room Air 03/30/20 04:00 97.6 97.6 03/30/20 04:00 3.0 I & 0 Intake and Output 03/30/20 07:00 Intake Total 4655 ml Output Total 1080 ml Balance 3575 ml Intake Oral 1070 ml IV Total 3585 ml Output Urine Total 1080 ml # Bowel Movements 3 PHYSICAL EXAM Physical Exam GEN: NAD HEEN: OM moist , On O2 by NC NECK: supple CVS: S1S2 RESP: decreased at bases , Non labored GI: BS + ve, NO Bruit, Non Tender, Non Distended : No CVA tenderness, No Suprapubic Tenderness, Booker + SKIN No Rash NEURO- Grossly normal Ext- No edema DIAGNOSIS/ASSESSMENT Assessment & Plan CYNTHIA- vasomotor/Hypotensive Improved, UA- unremarkable Supportive care, strict I/O, avoid nephrotoxins HyperNatremia - mild, dc I/2 NS , encourahe PO water intake If no improvement start IV D5W Acute pneumonia, suspected covid-19 Fever/ Leukocytosis. Ac Resp failure with Hypoxia- On O2 by NC Hypotension -better required pressors Atrial fibrillation with rapid ventricular response. Mild dementia. COMMENT/RELEVANT DATA Meds Current Medications Medications (Trade) Dose Ordered Sig/Asa Start Time Stop Time Status Last Admin Dose Admin Acetaminophen (Tylenol Supp) 650 mg PRN Q4HRS PRN 03/27/20 18:15 Acetaminophen (Tylenol) 1,000 mg 1X ONCE 03/27/20 16:30 03/27/20 16:55 DC Aspirin (Ecotrin) 81 mg DAILYWBKFT 03/29/20 08:00 03/30/20 08:39 81 MG Diltiazem HCl (Cardizem Iv Push) 10 mg 1X ONCE 03/27/20 17:30 03/27/20 17:37 DC 03/27/20 17:45 10 MG Diltiazem HCl 125 mg/Sodium Chloride 125 ml @ 5 mls/hr 1X ONCE 03/27/20 16:45 03/28/20 17:44 DC 03/27/20 16:45 5 MLS/HR Docusate Sodium (Colace) 100 mg PRN BID PRN 03/27/20 18:15 Dopamine HCl/ Dextrose 0 ml @ As Directed STK-MED ONCE 03/27/20 18:18 03/27/20 18:19 DC Enoxaparin Sodium (Lovenox 30mg Syringe) 30 mg BID 03/27/20 21:00 03/30/20 08:39 30 MG Famotidine (Pepcid Vial) 20 mg QHS 03/27/20 21:00 03/29/20 20:08 20 MG Hydrocortisone Sodium Succinate (Solu-CORTEF) 100 mg 1X ONCE 03/27/20 18:30 03/27/20 18:31 DC 03/27/20 18:30 100 MG Lactobacillus Rhamnosus (Culturelle) 1 cap BID 03/30/20 21:00 Lorazepam (Ativan Inj) 1 mg PRN Q4HRS PRN 03/29/20 00:00 03/29/20 00:02 1 MG Metoprolol Tartrate (Lopressor) 25 mg BID 03/28/20 21:00 03/30/20 08:39 25 MG Ondansetron HCl (Zofran) 4 mg PRN Q4HRS PRN 03/27/20 18:15 Piperacillin Sod/ Tazobactam Sod 2.25 gm/Sodium Chloride 50 ml @ 100 mls/hr Q6HRS 03/27/20 18:30 03/30/20 05:26 100 MLS/HR Piperacillin Sod/ Tazobactam Sod 3.375 gm/Sodium Chloride 50 ml @ 100 mls/hr Q6HRS 03/28/20 00:00 03/27/20 18:15 DC Potassium Chloride (Klor-Con) 40 meq 1X ONCE 03/29/20 12:00 03/29/20 12:01 DC 03/29/20 13:14 40 MEQ Sodium Chloride 1,000 ml @ 75 mls/hr [id number] 03/28/20 05:15 03/29/20 23:54 75 MLS/HR Sodium Chloride (Normal Saline Flush) 10 ml QSHIFT PRN 03/27/20 18:30 Vancomycin HCl (Vanco Per Pharmacy) 1 each PRN DAILY PRN 03/28/20 14:45 03/30/20 08:07 1 EACH Vancomycin HCl (Vancomycin Trough Level) 1 each 1X ONCE 03/31/20 09:30 03/31/20 09:31 Vancomycin HCl 1.5 gm/Sodium Chloride 500 ml @ 250 mls/hr 1X ONCE 03/27/20 20:00 03/27/20 21:59 DC 03/27/20 20:25 250 MLS/HR Vancomycin HCl 1 gm/Sodium Chloride 250 ml @ 250 mls/hr Q12H 03/30/20 10:00 Lab Laboratory Tests Test 03/29/20 11:00 03/29/20 20:40 Sodium Level 154 mmol/L (136-145) Potassium Level 3.2 mmol/L (3.5-5.1) Chloride Level 119 mmol/L (98-107) Carbon Dioxide Level 28 mmol/L (21-32) Anion Gap 7 (6-14) Blood Urea Nitrogen 27 mg/dL (8-26) Creatinine 0.9 mg/dL (0.7-1.3) Estimated GFR (Cockcroft-Gault) 81.2 Glucose Level 78 mg/dL (70-99) Calcium Level 7.2 mg/dL (8.5-10.1) Magnesium Level 2.8 mg/dL (1.8-2.4) Vancomycin Level Trough 7.0 mcg/mL (10.0-20.0) Vancomycin Last Dose Date Unk Vancomycin Last Dose Time Unk Results All relevant outside records, renal labs, imaging studies, telemetry/EKG's were reviewed. MERISSA DIAZ MD March 30, 2020 08:47
[2020-03-30] MEDS ORDERED: VANCOMYCIN 1 GM in IV NORMAL SALINE 250ML 250 ML IV SCH (10:00)
--- NOTE | 2020-03-30 10:56 | PDOC ---
Infectious Disease Note Subjective Subjective awake, feeling ok ROS ROS Denies any nausea vomiting diarrhea or shortness of breath Vital Sign Vital Signs Vital Signs Date Time Temp Pulse Resp B/P (MAP) Pulse Ox O2 Delivery O2 Flow Rate FiO2 03/30/20 10:52 98.3 62 16 127/67 (87) 98 Nasal Cannula 2.0 98.3 Physical Exam PHYSICAL EXAM PHYSICAL EXAMINATION: GENERAL: Pleasantly confused VITAL SIGNS: Stable. HEENT: Both pupils are round and reacting. No conjunctival lesion. No lesion in the mouth. NECK: Supple, no JVP, no lymphadenopathy. LUNGS: Clear. HEART: S1 and S2 regular. ABDOMEN: Benign. EXTREMITIES: No edema or cyanosis. SKIN: Unremarkable. NEUROLOGIC: The patient is alert, awake, moves all the extremities. Memory is poor. Labs Lab Laboratory Tests Test 03/29/20 11:00 03/29/20 20:40 Sodium Level 154 mmol/L (136-145) Potassium Level 3.2 mmol/L (3.5-5.1) Chloride Level 119 mmol/L (98-107) Carbon Dioxide Level 28 mmol/L (21-32) Anion Gap 7 (6-14) Blood Urea Nitrogen 27 mg/dL (8-26) Creatinine 0.9 mg/dL (0.7-1.3) Estimated GFR (Cockcroft-Gault) 81.2 Glucose Level 78 mg/dL (70-99) Calcium Level 7.2 mg/dL (8.5-10.1) Magnesium Level 2.8 mg/dL (1.8-2.4) Vancomycin Level Trough 7.0 mcg/mL (10.0-20.0) Vancomycin Last Dose Date Unk Vancomycin Last Dose Time Unk Micro Microbiology 03/27/20 Blood Culture - Preliminary, Resulted NO GROWTH AFTER 1 DAY Objective Assessment 1. COVID-19. Positive 2. Fever. 3. Leukocytosis. 4. Hypoxia. 5. Hypotension. 6. Atrial fibrillation with rapid ventricular response. 7. Mild dementia. Plan Plan of Care Discontinue vancomycin and continue Zosyn. Supportive care. We will follow the cultures and continue to follow CAREY HERBERT MD March 30, 2020 10:56
--- NOTE | 2020-03-30 10:59 | PDOC ---
MARIO ALBERTO FRITZ PHOTOGEOLOGIST 03/30/20 1059: CARDIO Progress Notes Date and Time Date of Service 03/30/2020 Time of Evaluation 1040 Subjective Subjective: No Chest Pain, No shortness of breath Vitals Vitals Vital Signs Date Time Temp Pulse Resp B/P (MAP) Pulse Ox O2 Delivery O2 Flow Rate FiO2 03/30/20 08:39 57 139/65 03/30/20 08:00 Nasal Cannula 3.0 03/30/20 06:00 28 95 03/30/20 04:00 97.6 97.6 Weight Weight [ ] Input and Output Intake and Output Intake and Output 03/30/20 07:00 Intake Total 4655 ml Output Total 1080 ml Balance 3575 ml Intake Oral 1070 ml IV Total 3585 ml Output Urine Total 1080 ml # Bowel Movements 3 Laboratory Labs Laboratory Tests Test 03/29/20 11:00 03/29/20 20:40 Sodium Level 154 mmol/L (136-145) Potassium Level 3.2 mmol/L (3.5-5.1) Chloride Level 119 mmol/L (98-107) Carbon Dioxide Level 28 mmol/L (21-32) Anion Gap 7 (6-14) Blood Urea Nitrogen 27 mg/dL (8-26) Creatinine 0.9 mg/dL (0.7-1.3) Estimated GFR (Cockcroft-Gault) 81.2 Glucose Level 78 mg/dL (70-99) Calcium Level 7.2 mg/dL (8.5-10.1) Magnesium Level 2.8 mg/dL (1.8-2.4) Vancomycin Level Trough 7.0 mcg/mL (10.0-20.0) Vancomycin Last Dose Date Unk Vancomycin Last Dose Time Unk Microbiology Micro Microbiology 03/27/20 Blood Culture - Preliminary, Resulted NO GROWTH AFTER 2 DAYS 03/27/20 Urine Culture - Final, Complete 03/27/20 Urine Culture Result 1 (KEYLA) - Final, Complete Physical Exam Chest: Symmetric LUNGS: Other (diminished, CXR reviewed) Heart: RRR (SR with PACs) Extremities: No Edema Neurology: alert, follow commands Other Exams Visual exam, labs reviewed. Awaiting tyransfer to 6S Assessment Assessment 1. Acute respiratory failure with COVID PNA, No SOA. pulmonary following. 2. AFIB with RVR; New? Maintaining SR with PACs intermittent bursts last night 3. CYNTHIA with hypernatremia: Cr back to baseline. Nephrology following 5. NSTEMI; peak 1.4. Most probable type II, demand ischemia with multiple culprits noted 6. Metabolic encephalopathy with underlying dementia Recommendations 1. Continue metoprolol. BMP and Mg today 2. ASA therapy for now for stroke prevention. HDL is low but otherwise lipids are very well controlled. Unclear if pt is on statin at correctional facility. 3. Outpatient echo to assess LV systolic function 4. Avoid nephrotoxins. Ongoing antibiotic therapy as per ID 5. Transffer to 6S when bed available. ZORA EVNAS MD 03/30/20 1603: CARDIO Progress Notes Assessment Assessment Patient seen and evaluated Agree with our nurse practitioners assessment and plan. Acute respiratory failure with COVID PNA. pulmonary following. AFIB with RVR; resolved and remaining in sinus rhythm. Continue present treatments. Outpatient echocardiogram. CYNTHIA. Cr back to baseline. Nephrology following NSTEMI; peak 1.4. Consistent with demand ischemia. Continue medical treatment. Outpatient echocardiogram. Consistent with demand ischemia. MARIO ALBERTO FRITZ APRN March 30, 2020 10:59 ZORA EVANS MD March 30, 2020 16:03
--- NOTE | 2020-03-30 11:08 | PDOC ---
PULMONARY PROGRESS NOTES Subjective pt on nasal canula no distress Vitals Vital Signs Date Time Temp Pulse Resp B/P (MAP) Pulse Ox O2 Delivery O2 Flow Rate FiO2 03/30/20 10:52 98.3 62 16 127/67 (87) 98 Nasal Cannula 2.0 98.3 Comments visual exam done due to COVID 19 no soa,,no distress no edema Lungs: Crackles Labs Laboratory Tests Test 03/29/20 11:00 03/29/20 20:40 Sodium Level 154 mmol/L (136-145) Potassium Level 3.2 mmol/L (3.5-5.1) Chloride Level 119 mmol/L (98-107) Carbon Dioxide Level 28 mmol/L (21-32) Anion Gap 7 (6-14) Blood Urea Nitrogen 27 mg/dL (8-26) Creatinine 0.9 mg/dL (0.7-1.3) Estimated GFR (Cockcroft-Gault) 81.2 Glucose Level 78 mg/dL (70-99) Calcium Level 7.2 mg/dL (8.5-10.1) Magnesium Level 2.8 mg/dL (1.8-2.4) Vancomycin Level Trough 7.0 mcg/mL (10.0-20.0) Vancomycin Last Dose Date Unk Vancomycin Last Dose Time Unk Laboratory Tests Test 03/29/20 20:40 Vancomycin Level Trough 7.0 mcg/mL (10.0-20.0) Vancomycin Last Dose Date Unk Vancomycin Last Dose Time Unk Comments cxr mild bilateral patchy infiltrates Impression . 1. Acute hypoxemic respiratory failure. 2. Abnormal x-ray compatible with pneumonia, suspect Gram-negative, possibly Gram-positive, possibly related to COVID-19. 3. Fever. 4. Leukocytosis. 5. COVID-19 positive 6. Atrial fibrillation with rapid ventricular response. 7. Dementia. Plan . PLAN: 1. Continue empiric antibiotics. 2. Oxygen supplementation. 3. Follow up on [id number] positive 4. Follow Cardiology input. 5. DVT and GI prophylaxis. transfer to floor. O2 requirement stable Total cumulative critical care time of 30 minutes reviewing data, chest x-ray and labs, along with formulating a plan. The above was discussed with RN and RT. AURY DIETRICH MD March 30, 2020 11:08
[2020-03-30 11:56] LABS: CALCIUM 6.9 mg/dL (8.5-10.1); CREATININE 0.9 mg/dL (0.7-1.3); GFR 81.2; MAGNESIUM 2.4 mg/dL (1.8-2.4); POTASSIUM 3.3 mmol/L (3.5-5.1)
--- NOTE | 2020-03-30 12:27 | PDOC ---
[facility] [facility] PROGRESS NOTE Chief Complaint Chief Complaint COVID-19 syndrome with fulminant respiratory failure Pneumonia Dehydration Elevated troponin Severe protein calorie malnutrition Acute kidney injury Debility History of Present Illness History of Present Illness 03/30/2020 Patient seen and examined in the ICU He has a forestry technical officer present He is resting with no apparent distress seems confused On IV vancomycin Chart reviewed Discussed with RN 03/29/2020 Patient seen and examined in the [place] [address] ICU He is on oxygen per nasal cannula His COVID test just came back positive He is pleasantly confused and mumbling Discussed with RN and corrections officers Chart reviewed He is extremely ill and encephalopathic plus he has chronic psychiatric issues 03/28/2020 Patient seen and examined in the [place] [address] ICU Discussed with RN He has 2 corrections officers present Chart reviewed He is critically Vitals/I&O Vitals/I&O: Vital Signs Date Time Temp Pulse Resp B/P (MAP) Pulse Ox O2 Delivery O2 Flow Rate FiO2 03/30/20 10:52 98.3 62 16 127/67 (87) 98 Nasal Cannula 2.0 98.3 I & O 03/29/20 03/29/20 03/30/20 15:00 23:00 07:00 Intake Total 320 ml 1100 ml 3235 ml Output Total 280 ml 525 ml 275 ml Balance 40 ml 575 ml 2960 ml Physical Exam Physical Exam: PHYSICAL EXAMINATION: GENERAL: Pleasantly confused VITAL SIGNS: Stable. HEENT: Both pupils are round and reacting. No conjunctival lesion. No lesion in the mouth. NECK: Supple, no JVP, no lymphadenopathy. LUNGS: Slight crackles decreased breath sound HEART: S1 and S2 regular. ABDOMEN: Benign. EXTREMITIES: No edema or cyanosis. SKIN: Unremarkable. NEUROLOGIC: The patient is alert, awake, moves all the extremities. Memory is poor. General: mild distress, Other (Extremely confused) Heart: Regular rate Lungs: Crackles Abdomen: Soft Extremities: No clubbing, No edema Skin: No rashes, No significant lesion Labs Labs: Laboratory Tests Test 03/29/20 20:40 03/30/20 11:30 Vancomycin Level Trough 7.0 mcg/mL (10.0-20.0) Vancomycin Last Dose Date Unk Vancomycin Last Dose Time Unk Sodium Level 152 mmol/L (136-145) Potassium Level 3.3 mmol/L (3.5-5.1) Chloride Level 117 mmol/L (98-107) Carbon Dioxide Level 29 mmol/L (21-32) Anion Gap 6 (6-14) Blood Urea Nitrogen 19 mg/dL (8-26) Creatinine 0.9 mg/dL (0.7-1.3) Estimated GFR (Cockcroft-Gault) 81.2 Glucose Level 117 mg/dL (70-99) Calcium Level 6.9 mg/dL (8.5-10.1) Magnesium Level 2.4 mg/dL (1.8-2.4) Review of Systems Review of Systems: Unable to obtain he is too confused Assessment and Plan Assessmemt and Plan Problems Medical Problems: (1) COVID-19 virus infection Status: Acute (2) Rapid atrial fibrillation Status: Acute 1. Severe respiratory failure secondary to COVID-19 2. Severe encephalopathy 3. DEHYDRATION 4. elevated troponin i 5. severe protein-caloric malnutrition 6. CYNTHIA 7. Severe psychiatric issues (he stays in a level 6 psychiatric unit at the [facility]) Plan ICU monitoring IV antibiotics IV fluids Trend labs Home meds DVT prophylaxis IV Pepcid Follow cultures Booker to bedside drainage Appreciate specialist input Prognosis very guarded at best He is critically ill Total time 32-minute COVID-19 CRITERIA: The patient was evaluated during the global COVID-19 pand emic, and that diagnosis was suspected/considered upon their initial presentation. Their evaluation, treatment and testing was consistent with current guidelines for patients who present with complaints or symptoms that may be related to COVID-19. Comment Review of Relevant I have reviewed the following items chris (where applicable) has been applied. Medications: Current Medications Medications (Trade) Dose Ordered Sig/Asa Route PRN Reason Start Time Stop Time Status Last Admin Dose Admin Vancomycin HCl (Vancomycin Trough Level) 1 each 1X ONCE MC 03/29/20 20:30 03/29/20 20:31 DC 03/29/20 20:30 Vancomycin HCl 1 gm/Sodium Chloride 250 ml @ 250 mls/hr Q12H IV 03/30/20 10:00 03/30/20 10:57 DC 03/30/20 09:49 KERWIN MANDUJANO III DO March 30, 2020 12:27
[2020-03-30] MEDS ORDERED: POTASSIUM CHLORIDE 20 MEQ TABLET.ER. PO ONE (12:30)
[2020-03-30] MEDS: FAMOTIDINE 20 MG/2 ML VIAL IVP SCH (20:12)
[2020-03-30] MEDS: LACTOBACILLUS RHAMNOSUS GG 1 CAPSULE. PO SCH (20:12)
[2020-03-31 02:37] VITALS: BP 132/67
[2020-03-31] MEDS: PIPERACILLIN/TAZOBACTAM 2.25 GM in IV NORMAL SALINE 50ML 50 ML IV SCH ×2 (05:34→11:39)
[2020-03-31 07:00] VITALS: BP 120/65
[2020-03-31 07:59] LABS: BASO % 1 % (0-3); EOS # 0.1 x10^3/uL (0.0-0.7); EOS % 2 % (0-3); HEMATOCRIT 41.3 % (39.0-53.0); HEMOGLOBIN 13.3 g/dL (13.0-17.5); LYMPH # 0.6 x10^3/uL (1.0-4.8); LYMPH % 10 % (24-48); MEAN CORPUSCULAR HEMOGLOBIN 29 pg (25-35); MEAN CORPUSCULAR HGB CONC 32 g/dL (31-37); MEAN CORPUSCULAR VOLUME 89 fL (79-100); MONO # 0.4 x10^3/uL (0.0-1.1); MONO % 7 % (0-9); NEUT # 4.8 x10^3/uL (1.8-7.7); NEUT % 81 % (31-73); PLATELET COUNT 176 x10^3/uL (140-400); RED BLOOD COUNT 4.66 x10^6/uL (4.30-5.70); RED CELL DISTRIBUTION WIDTH 14.3 % (11.5-14.5)
[2020-03-31 08:00] LABS: ALBUMIN 1.6 g/dL (3.4-5.0); ALBUMIN/GLOBULIN RATIO 0.5 (1.0-1.7); CALCIUM 6.7 mg/dL (8.5-10.1); CREATININE 0.7 mg/dL (0.7-1.3); GFR 108.5; POTASSIUM 3.4 mmol/L (3.5-5.1); TOTAL BILIRUBIN 0.5 mg/dL (0.2-1.0); TOTAL PROTEIN 4.8 g/dL (6.4-8.2)
[2020-03-31] MEDS ORDERED: POTASSIUM CHLORIDE 20 MEQ TABLET.ER. PO ONE (08:30)
[2020-03-31] MEDS: ASPIRIN ENTERIC COATED 81 MG TABLET.DR. PO SCH (08:36)
[2020-03-31] MEDS: LACTOBACILLUS RHAMNOSUS GG 1 CAPSULE. PO SCH (08:36)
[2020-03-31] MEDS: METOPROLOL TART IMMED RELEASE 25 MG TABLET. PO SCH (08:37)
[2020-03-31] MEDS: ENOXAPARIN 30 MG/0.3 ML SYRINGE. SQ SCH (08:37)
--- NOTE | 2020-03-31 09:23 | PDOC ---
Infectious Disease Note Subjective Subjective awake, feeling ok ROS ROS No nausea vomiting diarrhea or shortness of breath Vital Sign Vital Signs Vital Signs Date Time Temp Pulse Resp B/P (MAP) Pulse Ox O2 Delivery O2 Flow Rate FiO2 03/31/20 08:37 52 120/65 03/31/20 02:37 98.1 18 97 Nasal Cannula 2.0 98.1 Physical Exam PHYSICAL EXAM PHYSICAL EXAMINATION: GENERAL: Pleasantly confused VITAL SIGNS: Stable. HEENT: Both pupils are round and reacting. No conjunctival lesion. No lesion in the mouth. NECK: Supple, no JVP, no lymphadenopathy. LUNGS: Slight crackles decreased breath sound HEART: S1 and S2 regular. ABDOMEN: Benign. EXTREMITIES: No edema or cyanosis. SKIN: Unremarkable. NEUROLOGIC: The patient is alert, awake, moves all the extremities. Memory is poor. Labs Lab Laboratory Tests Test 03/30/20 11:30 03/31/20 04:40 Sodium Level 152 mmol/L (136-145) 148 mmol/L (136-145) Potassium Level 3.3 mmol/L (3.5-5.1) 3.4 mmol/L (3.5-5.1) Chloride Level 117 mmol/L (98-107) 113 mmol/L (98-107) Carbon Dioxide Level 29 mmol/L (21-32) 29 mmol/L (21-32) Anion Gap 6 (6-14) 6 (6-14) Blood Urea Nitrogen 19 mg/dL (8-26) 14 mg/dL (8-26) Creatinine 0.9 mg/dL (0.7-1.3) 0.7 mg/dL (0.7-1.3) Estimated GFR (Cockcroft-Gault) 81.2 108.5 Glucose Level 117 mg/dL (70-99) 103 mg/dL (70-99) Calcium Level 6.9 mg/dL (8.5-10.1) 6.7 mg/dL (8.5-10.1) Magnesium Level 2.4 mg/dL (1.8-2.4) White Blood Count 6.0 x10^3/uL (4.0-11.0) Red Blood Count 4.66 x10^6/uL (4.30-5.70) Hemoglobin 13.3 g/dL (13.0-17.5) Hematocrit 41.3 % (39.0-53.0) Mean Corpuscular Volume 89 fL (79-100) Mean Corpuscular Hemoglobin 29 pg (25-35) Mean Corpuscular Hemoglobin Concent 32 g/dL (31-37) Red Cell Distribution Width 14.3 % (11.5-14.5) Platelet Count 176 x10^3/uL (140-400) Neutrophils (%) (Auto) 81 % (31-73) Lymphocytes (%) (Auto) 10 % (24-48) Monocytes (%) (Auto) 7 % (0-9) Eosinophils (%) (Auto) 2 % (0-3) Basophils (%) (Auto) 1 % (0-3) Neutrophils # (Auto) 4.8 x10^3/uL (1.8-7.7) Lymphocytes # (Auto) 0.6 x10^3/uL (1.0-4.8) Monocytes # (Auto) 0.4 x10^3/uL (0.0-1.1) Eosinophils # (Auto) 0.1 x10^3/uL (0.0-0.7) Basophils # (Auto) 0.0 x10^3/uL (0.0-0.2) BUN/Creatinine Ratio 20 (6-20) Total Bilirubin 0.5 mg/dL (0.2-1.0) Aspartate Amino Transf (AST/SGOT) 70 U/L (15-37) Alanine Aminotransferase (ALT/SGPT) 53 U/L (16-63) Alkaline Phosphatase 32 U/L (46-116) Total Protein 4.8 g/dL (6.4-8.2) Albumin 1.6 g/dL (3.4-5.0) Albumin/Globulin Ratio 0.5 (1.0-1.7) Micro Microbiology 03/27/20 Blood Culture - Preliminary, Resulted NO GROWTH AFTER 1 DAY Objective Assessment 1. COVID-19. Positive 2. Fever. Resolved 3. Leukocytosis. 4. Hypoxia. 5. Hypotension. 6. Atrial fibrillation with rapid ventricular response. 7. Mild dementia. Plan Plan of Care continue Zosyn. Supportive care. All cultures negative CAREY HERBERT MD March 31, 2020 09:23
--- NOTE | 2020-03-31 09:28 | PDOC ---
SUBJECTIVE ROS stable OBJECTIVE Vital Signs Vital Signs Date Time Temp Pulse Resp B/P (MAP) Pulse Ox O2 Delivery O2 Flow Rate FiO2 03/31/20 08:37 52 120/65 03/31/20 02:37 98.1 18 97 Nasal Cannula 2.0 98.1 I & 0 Intake and Output 03/31/20 07:00 Intake Total 1050 ml Output Total 1650 ml Balance -600 ml Intake Oral 1050 ml Output Urine Total 1650 ml # Bowel Movements 3 PHYSICAL EXAM Physical Exam GEN: NAD HEEN: OM moist , On O2 by NC NECK: supple CVS: S1S2 RESP: decreased at bases , Non labored GI: BS + ve, NO Bruit, Non Tender, Non Distended : No CVA tenderness, No Suprapubic Tenderness, Booker + SKIN No Rash NEURO- Grossly normal Ext- No edema DIAGNOSIS/ASSESSMENT Assessment & Plan CYNTHIA- vasomotor resolved, UA- unremarkable Supportive care, avoid nephrotoxins HyperNatremia - mild,improving encourage PO water intake HypoKalemia - Replace Acute pneumonia, suspected covid-19 Fever/ Leukocytosis. Ac Resp failure with Hypoxia- On O2 by NC Hypotension -better required pressors Atrial fibrillation with rapid ventricular response. Mild dementia. COMMENT/RELEVANT DATA Meds Current Medications Medications (Trade) Dose Ordered Sig/Asa Start Time Stop Time Status Last Admin Dose Admin Acetaminophen (Tylenol Supp) 650 mg PRN Q4HRS PRN 03/27/20 18:15 Acetaminophen (Tylenol) 1,000 mg 1X ONCE 03/27/20 16:30 03/27/20 16:55 DC Aspirin (Ecotrin) 81 mg [id number] 03/29/20 08:00 03/31/20 08:36 81 MG Diltiazem HCl (Cardizem Iv Push) 10 mg 1X ONCE 03/27/20 17:30 03/27/20 17:37 DC 03/27/20 17:45 10 MG Diltiazem HCl 125 mg/Sodium Chloride 125 ml @ 5 mls/hr 1X ONCE 03/27/20 16:45 03/28/20 17:44 DC 03/27/20 16:45 5 MLS/HR Docusate Sodium (Colace) 100 mg PRN BID PRN 03/27/20 18:15 Dopamine HCl/ Dextrose 0 ml @ As Directed STK-MED ONCE 03/27/20 18:18 03/27/20 18:19 DC Enoxaparin Sodium (Lovenox 30mg Syringe) 30 mg BID 03/27/20 21:00 03/31/20 08:37 30 MG Famotidine (Pepcid Vial) 20 mg QHS 03/27/20 21:00 03/30/20 20:12 20 MG Hydrocortisone Sodium Succinate (Solu-CORTEF) 100 mg 1X ONCE 03/27/20 18:30 03/27/20 18:31 DC 03/27/20 18:30 100 MG Lactobacillus Rhamnosus (Culturelle) 1 cap BID 03/30/20 21:00 03/31/20 08:36 1 CAP Lorazepam (Ativan Inj) 1 mg PRN Q4HRS PRN 03/29/20 00:00 03/29/20 00:02 1 MG Metoprolol Tartrate (Lopressor) 25 mg BID 03/28/20 21:00 03/30/20 20:13 25 MG Ondansetron HCl (Zofran) 4 mg PRN Q4HRS PRN 03/27/20 18:15 Piperacillin Sod/ Tazobactam Sod 2.25 gm/Sodium Chloride 50 ml @ 100 mls/hr Q6HRS 03/27/20 18:30 03/31/20 05:34 100 MLS/HR Piperacillin Sod/ Tazobactam Sod 3.375 gm/Sodium Chloride 50 ml @ 100 mls/hr Q6HRS 03/28/20 00:00 03/27/20 18:15 DC Potassium Chloride (Klor-Con) 20 meq 1X ONCE 03/31/20 08:30 03/31/20 08:31 DC 03/31/20 08:38 20 MEQ Sodium Chloride 1,000 ml @ 75 mls/hr [id number] 03/28/20 05:15 03/30/20 11:59 DC 03/29/20 23:54 75 MLS/HR Sodium Chloride (Normal Saline Flush) 10 ml QSHIFT PRN 03/27/20 18:30 Vancomycin HCl (Vanco Per Pharmacy) 1 each PRN DAILY PRN 03/28/20 14:45 03/30/20 10:57 DC 03/30/20 08:07 1 EACH Vancomycin HCl (Vancomycin Trough Level) 1 each 1X ONCE 03/31/20 09:30 03/30/20 10:58 DC Vancomycin HCl 1.5 gm/Sodium Chloride 500 ml @ 250 mls/hr 1X ONCE 03/27/20 20:00 03/27/20 21:59 DC 03/27/20 20:25 250 MLS/HR Vancomycin HCl 1 gm/Sodium Chloride 250 ml @ 250 mls/hr Q12H 03/30/20 10:00 03/30/20 10:57 DC 03/30/20 09:49 250 MLS/HR Lab Laboratory Tests Test 03/30/20 11:30 03/31/20 04:40 Sodium Level 152 mmol/L (136-145) 148 mmol/L (136-145) Potassium Level 3.3 mmol/L (3.5-5.1) 3.4 mmol/L (3.5-5.1) Chloride Level 117 mmol/L (98-107) 113 mmol/L (98-107) Carbon Dioxide Level 29 mmol/L (21-32) 29 mmol/L (21-32) Anion Gap 6 (6-14) 6 (6-14) Blood Urea Nitrogen 19 mg/dL (8-26) 14 mg/dL (8-26) Creatinine 0.9 mg/dL (0.7-1.3) 0.7 mg/dL (0.7-1.3) Estimated GFR (Cockcroft-Gault) 81.2 108.5 Glucose Level 117 mg/dL (70-99) 103 mg/dL (70-99) Calcium Level 6.9 mg/dL (8.5-10.1) 6.7 mg/dL (8.5-10.1) Magnesium Level 2.4 mg/dL (1.8-2.4) White Blood Count 6.0 x10^3/uL (4.0-11.0) Red Blood Count 4.66 x10^6/uL (4.30-5.70) Hemoglobin 13.3 g/dL (13.0-17.5) Hematocrit 41.3 % (39.0-53.0) Mean Corpuscular Volume 89 fL (79-100) Mean Corpuscular Hemoglobin 29 pg (25-35) Mean Corpuscular Hemoglobin Concent 32 g/dL (31-37) Red Cell Distribution Width 14.3 % (11.5-14.5) Platelet Count 176 x10^3/uL (140-400) Neutrophils (%) (Auto) 81 % (31-73) Lymphocytes (%) (Auto) 10 % (24-48) Monocytes (%) (Auto) 7 % (0-9) Eosinophils (%) (Auto) 2 % (0-3) Basophils (%) (Auto) 1 % (0-3) Neutrophils # (Auto) 4.8 x10^3/uL (1.8-7.7) Lymphocytes # (Auto) 0.6 x10^3/uL (1.0-4.8) Monocytes # (Auto) 0.4 x10^3/uL (0.0-1.1) Eosinophils # (Auto) 0.1 x10^3/uL (0.0-0.7) Basophils # (Auto) 0.0 x10^3/uL (0.0-0.2) BUN/Creatinine Ratio 20 (6-20) Total Bilirubin 0.5 mg/dL (0.2-1.0) Aspartate Amino Transf (AST/SGOT) 70 U/L (15-37) Alanine Aminotransferase (ALT/SGPT) 53 U/L (16-63) Alkaline Phosphatase 32 U/L (46-116) Total Protein 4.8 g/dL (6.4-8.2) Albumin 1.6 g/dL (3.4-5.0) Albumin/Globulin Ratio 0.5 (1.0-1.7) Results All relevant outside records, renal labs, imaging studies, telemetry/EKG's were reviewed. MERISSA DIAZ MD March 31, 2020 09:27
[2020-03-31 11:00] VITALS: BP 115/63
--- NOTE | 2020-03-31 11:38 | PDOC ---
PULMONARY PROGRESS NOTES Subjective pt on nasal canula no distress Vitals Vital Signs Date Time Temp Pulse Resp B/P (MAP) Pulse Ox O2 Delivery O2 Flow Rate FiO2 03/31/20 11:00 98.2 62 24 115/63 (80) 97 Nasal Cannula 2.0 98.2 Comments visual exam done due to COVID 19 no soa,,no distress no edema Labs Laboratory Tests Test 03/29/20 20:40 03/30/20 11:30 03/31/20 04:40 Vancomycin Level Trough 7.0 mcg/mL (10.0-20.0) Vancomycin Last Dose Date Unk Vancomycin Last Dose Time Unk Sodium Level 152 mmol/L (136-145) 148 mmol/L (136-145) Potassium Level 3.3 mmol/L (3.5-5.1) 3.4 mmol/L (3.5-5.1) Chloride Level 117 mmol/L (98-107) 113 mmol/L (98-107) Carbon Dioxide Level 29 mmol/L (21-32) 29 mmol/L (21-32) Anion Gap 6 (6-14) 6 (6-14) Blood Urea Nitrogen 19 mg/dL (8-26) 14 mg/dL (8-26) Creatinine 0.9 mg/dL (0.7-1.3) 0.7 mg/dL (0.7-1.3) Estimated GFR (Cockcroft-Gault) 81.2 108.5 Glucose Level 117 mg/dL (70-99) 103 mg/dL (70-99) Calcium Level 6.9 mg/dL (8.5-10.1) 6.7 mg/dL (8.5-10.1) Magnesium Level 2.4 mg/dL (1.8-2.4) White Blood Count 6.0 x10^3/uL (4.0-11.0) Red Blood Count 4.66 x10^6/uL (4.30-5.70) Hemoglobin 13.3 g/dL (13.0-17.5) Hematocrit 41.3 % (39.0-53.0) Mean Corpuscular Volume 89 fL (79-100) Mean Corpuscular Hemoglobin 29 pg (25-35) Mean Corpuscular Hemoglobin Concent 32 g/dL (31-37) Red Cell Distribution Width 14.3 % (11.5-14.5) Platelet Count 176 x10^3/uL (140-400) Neutrophils (%) (Auto) 81 % (31-73) Lymphocytes (%) (Auto) 10 % (24-48) Monocytes (%) (Auto) 7 % (0-9) Eosinophils (%) (Auto) 2 % (0-3) Basophils (%) (Auto) 1 % (0-3) Neutrophils # (Auto) 4.8 x10^3/uL (1.8-7.7) Lymphocytes # (Auto) 0.6 x10^3/uL (1.0-4.8) Monocytes # (Auto) 0.4 x10^3/uL (0.0-1.1) Eosinophils # (Auto) 0.1 x10^3/uL (0.0-0.7) Basophils # (Auto) 0.0 x10^3/uL (0.0-0.2) BUN/Creatinine Ratio 20 (6-20) Total Bilirubin 0.5 mg/dL (0.2-1.0) Aspartate Amino Transf (AST/SGOT) 70 U/L (15-37) Alanine Aminotransferase (ALT/SGPT) 53 U/L (16-63) Alkaline Phosphatase 32 U/L (46-116) Total Protein 4.8 g/dL (6.4-8.2) Albumin 1.6 g/dL (3.4-5.0) Albumin/Globulin Ratio 0.5 (1.0-1.7) Laboratory Tests Test 03/31/20 04:40 White Blood Count 6.0 x10^3/uL (4.0-11.0) Red Blood Count 4.66 x10^6/uL (4.30-5.70) Hemoglobin 13.3 g/dL (13.0-17.5) Hematocrit 41.3 % (39.0-53.0) Mean Corpuscular Volume 89 fL (79-100) Mean Corpuscular Hemoglobin 29 pg (25-35) Mean Corpuscular Hemoglobin Concent 32 g/dL (31-37) Red Cell Distribution Width 14.3 % (11.5-14.5) Platelet Count 176 x10^3/uL (140-400) Neutrophils (%) (Auto) 81 % (31-73) Lymphocytes (%) (Auto) 10 % (24-48) Monocytes (%) (Auto) 7 % (0-9) Eosinophils (%) (Auto) 2 % (0-3) Basophils (%) (Auto) 1 % (0-3) Neutrophils # (Auto) 4.8 x10^3/uL (1.8-7.7) Lymphocytes # (Auto) 0.6 x10^3/uL (1.0-4.8) Monocytes # (Auto) 0.4 x10^3/uL (0.0-1.1) Eosinophils # (Auto) 0.1 x10^3/uL (0.0-0.7) Basophils # (Auto) 0.0 x10^3/uL (0.0-0.2) Sodium Level 148 mmol/L (136-145) Potassium Level 3.4 mmol/L (3.5-5.1) Chloride Level 113 mmol/L (98-107) Carbon Dioxide Level 29 mmol/L (21-32) Anion Gap 6 (6-14) Blood Urea Nitrogen 14 mg/dL (8-26) Creatinine 0.7 mg/dL (0.7-1.3) Estimated GFR (Cockcroft-Gault) 108.5 BUN/Creatinine Ratio 20 (6-20) Glucose Level 103 mg/dL (70-99) Calcium Level 6.7 mg/dL (8.5-10.1) Total Bilirubin 0.5 mg/dL (0.2-1.0) Aspartate Amino Transf (AST/SGOT) 70 U/L (15-37) Alanine Aminotransferase (ALT/SGPT) 53 U/L (16-63) Alkaline Phosphatase 32 U/L (46-116) Total Protein 4.8 g/dL (6.4-8.2) Albumin 1.6 g/dL (3.4-5.0) Albumin/Globulin Ratio 0.5 (1.0-1.7) Comments cxr mild bilateral patchy infiltrates Impression . 1. Acute hypoxemic respiratory failure. 2. Abnormal x-ray compatible with pneumonia, suspect Gram-negative, possibly Gram-positive, possibly related to COVID-19. 3. Fever. 4. Leukocytosis. 5. COVID-19 positive 6. Atrial fibrillation with rapid ventricular response. 7. Dementia. Plan . PLAN: 1. Continue empiric antibiotics.can change to PO 2. Oxygen supplementation. 3. Follow up on [id number] positive 4. Follow Cardiology input. 5. DVT and GI prophylaxis. transfer to floor. O2 requirement stable The above was discussed with RN and RT. can be dismissed from hospital AURY DIETRICH MD March 31, 2020 11:38
--- NOTE | 2020-03-31 11:52 | PDOC ---
[employer] PROGRESS NOTE Chief Complaint Chief Complaint Resolving COVID-19 syndrome with fulminant respiratory failure Pneumonia Dehydration Elevated troponin Severe protein calorie malnutrition Acute kidney injury Debility History of Present Illness History of Present Illness 03/31/2020 Patient seen and examined in the ICU (he is actually an overflow patient) He seems to be at his baseline He is only on oxygen by nasal cannula 2 L I talked to the long term physician he is okay with getting the patient back to the [facility] Him to go ahead discharge today 03/30/2020 Patient seen and examined in the ICU He has a banking officer present He is resting with no apparent distress seems confused On IV vancomycin Chart reviewed Discussed with RN 03/29/2020 Patient seen and examined in the [place] [id number] ICU He is on oxygen per nasal cannula His COVID test just came back positive He is pleasantly confused and mumbling Discussed with RN and corrections officers Chart reviewed He is extremely ill and encephalopathic plus he has chronic psychiatric issues 03/28/2020 Patient seen and examined in the [place] [address] ICU Discussed with RN He has 2 corrections officers present Chart reviewed He is critically Vitals/I&O Vitals/I&O: Vital Signs Date Time Temp Pulse Resp B/P (MAP) Pulse Ox O2 Delivery O2 Flow Rate FiO2 03/31/20 11:00 98.2 62 24 115/63 (80) 97 Nasal Cannula 2.0 98.2 I & O 03/30/20 03/30/20 03/31/20 15:00 23:00 07:00 Intake Total 350 ml 600 ml 100 ml Output Total 175 ml 725 ml 750 ml Balance 175 ml -125 ml -650 ml Physical Exam Physical Exam: PHYSICAL EXAMINATION: GENERAL: Pleasantly VITAL SIGNS: Stable. HEENT: Both pupils are round and reacting. No conjunctival lesion. No lesion in the mouth. NECK: Supple, no JVP, no lymphadenopathy. LUNGS: Clear to auscultation HEART: S1 and S2 regular. ABDOMEN: Benign. EXTREMITIES: No edema or cyanosis. SKIN: Unremarkable. NEUROLOGIC: The patient is alert, awake, moves all the extremities. Memory is poor. General: mild distress, Other (Extremely confused) Heart: Regular rate Abdomen: Soft Extremities: No clubbing, No edema Skin: No rashes, No significant lesion Labs Labs: Laboratory Tests Test 03/31/20 04:40 White Blood Count 6.0 x10^3/uL (4.0-11.0) Red Blood Count 4.66 x10^6/uL (4.30-5.70) Hemoglobin 13.3 g/dL (13.0-17.5) Hematocrit 41.3 % (39.0-53.0) Mean Corpuscular Volume 89 fL (79-100) Mean Corpuscular Hemoglobin 29 pg (25-35) Mean Corpuscular Hemoglobin Concent 32 g/dL (31-37) Red Cell Distribution Width 14.3 % (11.5-14.5) Platelet Count 176 x10^3/uL (140-400) Neutrophils (%) (Auto) 81 % (31-73) Lymphocytes (%) (Auto) 10 % (24-48) Monocytes (%) (Auto) 7 % (0-9) Eosinophils (%) (Auto) 2 % (0-3) Basophils (%) (Auto) 1 % (0-3) Neutrophils # (Auto) 4.8 x10^3/uL (1.8-7.7) Lymphocytes # (Auto) 0.6 x10^3/uL (1.0-4.8) Monocytes # (Auto) 0.4 x10^3/uL (0.0-1.1) Eosinophils # (Auto) 0.1 x10^3/uL (0.0-0.7) Basophils # (Auto) 0.0 x10^3/uL (0.0-0.2) Sodium Level 148 mmol/L (136-145) Potassium Level 3.4 mmol/L (3.5-5.1) Chloride Level 113 mmol/L (98-107) Carbon Dioxide Level 29 mmol/L (21-32) Anion Gap 6 (6-14) Blood Urea Nitrogen 14 mg/dL (8-26) Creatinine 0.7 mg/dL (0.7-1.3) Estimated GFR (Cockcroft-Gault) 108.5 BUN/Creatinine Ratio 20 (6-20) Glucose Level 103 mg/dL (70-99) Calcium Level 6.7 mg/dL (8.5-10.1) Total Bilirubin 0.5 mg/dL (0.2-1.0) Aspartate Amino Transf (AST/SGOT) 70 U/L (15-37) Alanine Aminotransferase (ALT/SGPT) 53 U/L (16-63) Alkaline Phosphatase 32 U/L (46-116) Total Protein 4.8 g/dL (6.4-8.2) Albumin 1.6 g/dL (3.4-5.0) Albumin/Globulin Ratio 0.5 (1.0-1.7) Assessment and Plan Assessmemt and Plan Problems Medical Problems: (1) COVID-19 virus infection Status: Acute (2) Rapid atrial fibrillation Status: Acut Discharge back to the [facility] Comment Review of Relevant I have reviewed the following items chris (where applicable) has been applied. Medications: Current Medications Medications (Trade) Dose Ordered Sig/Asa Route PRN Reason Start Time Stop Time Status Last Admin Dose Admin Lactobacillus Rhamnosus (Culturelle) 1 cap BID PO 03/30/20 21:00 03/31/20 08:36 Potassium Chloride (Klor-Con) 20 meq 1X ONCE PO 03/30/20 12:30 03/30/20 12:31 DC 03/30/20 12:27 Potassium Chloride (Klor-Con) 20 meq 1X ONCE PO 03/31/20 08:30 03/31/20 08:31 DC 03/31/20 08:38 CASTKERWIN BYERS K III DO March 31, 2020 11:52
[2020-03-31] MEDS ORDERED: AMOX1TAB11 PO (11:57)
--- NOTE | 2020-03-31 11:57 | SNU/HH DC ---
DISCHARGE ORDERS DISCHARGE INFORMATION: FINAL DIAGNOSIS Problems Medical Problems: (1) COVID-19 virus infection Status: Acute (2) Rapid atrial fibrillation Status: Acute CONDITION ON DISCHARGE: Stable CODE STATUS: Code Status: Full GROUP HOME: SNF STAY <30 DAYS: No HOSPICE: HOSPICE: No HOSPICE EVAL & TREAT: No LTAC: ADMIT TO LTAC: No POST DISCHARGE ORDERS: DIET AFTER DISCHARGE: Cardiac DISCHARGE MEDICATIONS: Home Meds Active Scripts Amoxicillin/Potassium Clav (AMOX TR-K CLV 875-125 MG TAB) 1 Each Tablet, 875 TAB PO BID for infection for 7 Days, TAB Prov:KERWIN MANDUJANO K III DO 03/31/20 JIMY MANDUJANOL K III DO March 31, 2020 11:57
--- NOTE | 2020-03-31 12:48 | PDOC ---
MARIO ALBERTO FRITZ [employer] 03/31/20 1248: CARDIO Progress Notes Date and Time Date of Service 03/31/2020 Time of Evaluation 1110 Subjective Subjective: No Chest Pain, No shortness of breath, Other (confuse) Vitals Vitals Vital Signs Date Time Temp Pulse Resp B/P (MAP) Pulse Ox O2 Delivery O2 Flow Rate FiO2 03/31/20 11:00 98.2 62 24 115/63 (80) 97 Nasal Cannula 2.0 98.2 Weight Weight [ ] Input and Output Intake and Output Intake and Output 03/31/20 07:00 Intake Total 1050 ml Output Total 1650 ml Balance -600 ml Intake Oral 1050 ml Output Urine Total 1650 ml # Bowel Movements 3 Laboratory Labs Laboratory Tests Test 03/31/20 04:40 White Blood Count 6.0 x10^3/uL (4.0-11.0) Red Blood Count 4.66 x10^6/uL (4.30-5.70) Hemoglobin 13.3 g/dL (13.0-17.5) Hematocrit 41.3 % (39.0-53.0) Mean Corpuscular Volume 89 fL (79-100) Mean Corpuscular Hemoglobin 29 pg (25-35) Mean Corpuscular Hemoglobin Concent 32 g/dL (31-37) Red Cell Distribution Width 14.3 % (11.5-14.5) Platelet Count 176 x10^3/uL (140-400) Neutrophils (%) (Auto) 81 % (31-73) Lymphocytes (%) (Auto) 10 % (24-48) Monocytes (%) (Auto) 7 % (0-9) Eosinophils (%) (Auto) 2 % (0-3) Basophils (%) (Auto) 1 % (0-3) Neutrophils # (Auto) 4.8 x10^3/uL (1.8-7.7) Lymphocytes # (Auto) 0.6 x10^3/uL (1.0-4.8) Monocytes # (Auto) 0.4 x10^3/uL (0.0-1.1) Eosinophils # (Auto) 0.1 x10^3/uL (0.0-0.7) Basophils # (Auto) 0.0 x10^3/uL (0.0-0.2) Sodium Level 148 mmol/L (136-145) Potassium Level 3.4 mmol/L (3.5-5.1) Chloride Level 113 mmol/L (98-107) Carbon Dioxide Level 29 mmol/L (21-32) Anion Gap 6 (6-14) Blood Urea Nitrogen 14 mg/dL (8-26) Creatinine 0.7 mg/dL (0.7-1.3) Estimated GFR (Cockcroft-Gault) 108.5 BUN/Creatinine Ratio 20 (6-20) Glucose Level 103 mg/dL (70-99) Calcium Level 6.7 mg/dL (8.5-10.1) Total Bilirubin 0.5 mg/dL (0.2-1.0) Aspartate Amino Transf (AST/SGOT) 70 U/L (15-37) Alanine Aminotransferase (ALT/SGPT) 53 U/L (16-63) Alkaline Phosphatase 32 U/L (46-116) Total Protein 4.8 g/dL (6.4-8.2) Albumin 1.6 g/dL (3.4-5.0) Albumin/Globulin Ratio 0.5 (1.0-1.7) Microbiology Micro Microbiology 03/27/20 Blood Culture - Preliminary, Resulted NO GROWTH AFTER 3 DAYS 03/27/20 Urine Culture - Final, Complete 03/27/20 Urine Culture Result 1 (KEYLA) - Final, Complete Physical Exam Chest: Symmetric LUNGS: Other (diminished, CXR reviewed) Heart: RRR (SR) Extremities: No Edema Neurology: alert, follow commands, confused Other Exams Discussed with RN, no distress, confuse but pleasant. Assessment Assessment 1. Acute respiratory failure with COVID PNA, No SOA. pulmonary following. 2. AFIB with RVR; New? Induced by above. Reviewed tele episodes, appears low burden for afib 3. CYNTHIA with hypernatremia: Cr back to baseline. Nephrology following 5. NSTEMI; peak 1.4. Most probable type II, demand ischemia with multiple culprits noted 6. Metabolic encephalopathy with underlying dementia Recommendations 1. Continue metoprolol. 2. ASA therapy for now for stroke prevention. HDL is low but otherwise lipids are very well controlled. Unclear if pt is on statin at [facility] facility. 3. Outpatient echo to assess LV systolic function 4. May DC per cardiac standpoint. May follow up in office once fully recovered from covid. MCSWEYN,ZORA J MD 03/31/20 1650: CARDIO Progress Notes Assessment Assessment Patient seen and evaluated I agree with our nurse practitioners assessment and plan. Acute respiratory failure with COVID PNA, improving. As per the pulmonary service. AFIB with RVR; Probably induced by respiratory distress. Low burden for atrial fibrillation. Continue metoprolol and aspirin. CYNTHIA: Cr back to baseline. Nephrology following NSTEMI; peak 1.4. Most probable type II, demand ischemia with multiple culprits noted. Continue medical treatment. Future outpatient work-up including an echocardiogram. MARIO ALBERTO FRITZ APRN March 31, 2020 12:48 ZORA EVANS MD March 31, 2020 16:50
--- NOTE | 2020-03-31 13:07 | DS ---
DATE OF DISCHARGE: 03/31/2020 ADMISSION DIAGNOSES: COVID-19 syndrome, rapid atrial fibrillation. DISCHARGE DIAGNOSES: Resolving atrial fibrillation, resolving COVID-19, history of psychiatric issues, resolving pneumonia, resolving dehydration, resolving elevated troponin, protein-calorie malnutrition, acute kidney injury and debility. CONSULTS: Dr. Abarca, Dr. Cabrera Escudero and Dr. Shukla. PROCEDURES: None. HOSPITAL COURSE: The patient is a pleasant elderly male, who resides at [facility]. Basically, he was exposed to COVID-19. He was also in AFib. We admitted the patient. We got a good rate control. We gave him IV antibiotics, including vancomycin and Zosyn. Over the past few days, he has basically returned to his baseline. This morning, I saw and examined him, he looks great. I talked to the [facility] physician. We plan to discharge back to the [facility] with p.o. Augmentin. DISPOSITION: [facility]. ACTIVITY: As tolerated. DIET: Low sodium. MEDICATIONS: Please see the MRAD. TOTAL TIME: 32 minutes. KERWIN MANDUJANO DO DR: EUGENE/rosi JOB#: [id number] / [id number]
--- NOTE | 2020-03-31 13:12 | NUR ---
Pt discharged back to [facility] with guardsx2. IV discontinued. Booker discontinued. Retirement staff called and updated on report and discharge medication of Augmentin. Pt stable upon discharge.
[2020-03-31] MEDS ORDERED: AMOXICILLIN/K CLAV 875/125MG TABLET. PO SCH (21:00)
== END 2020-03-31 12:48 | DRG 177 ==
LOC: ER 16:09 → 1 WEST ICU 17:26 → EEVIPCON 17:26
PROVIDERS: ADMIT Family Medicine; ATTEND Family Medicine
DX: U07.1 COVID-19 (principal); J96.01 Acute respiratory failure with hypoxia; I21.4 Non-ST elevation (NSTEMI) myocardial infarction; G93.41 Metabolic encephalopathy; E43 Unspecified severe protein-calorie malnutrition; J12.89 Other viral pneumonia; E87.0 Hyperosmolality and hypernatremia; E87.2 Acidosis; N17.9 Acute kidney failure, unspecified; Z68.20 Body mass index [BMI] 20.0-20.9, adult; E86.0 Dehydration; F03.90 Unspecified dementia, unspecified severity, without behavioral disturbance, psychotic disturbance, mood disturbance, and anxiety; I25.2 Old myocardial infarction; I48.91 Unspecified atrial fibrillation; Z82.49 Family history of ischemic heart disease and other diseases of the circulatory system; I95.9 Hypotension, unspecified; E87.6 Hypokalemia
CPT/HCPCS: 36415; 71045; 80048; 80053; 80061; 80202; 81001; 82140; 83605; 83735; 84145; 84443; 84484; 85007; 85025; 85379; 85384; 87040; 87086; 87635; 87804; 93005; 96361; 96365; 96376; J1650; J1720; J2060; J2543; J3370; J3490; J7030; J7040; J7050; 99291-25; G0378